=== PATIENT | female | born 1955 | race African-American/Black ===

== ENCOUNTER 2019-07-22 08:55 | Inpatient (IN) | payer OTHER ==
[~2019-07-22] VITALS: Ht 157.5 cm; Wt 69.6 kg
--- NOTE | ~2019-07-22 | EEG ---
[facility] [place] [address] ELECTROENCEPHALOGRAM Name: ZEKE COTE Room #: [facility] IN M.R.#: [id number] Admission: 07/22/19 Attend Phys: Matias Boogie MD Discharge: Date of : 59 Report #: [id number] THIS REPORT FOR: //name// CC: Matias Boogie [facility] unknown DATE OF SERVICE: 07/22/2019 This patient is being evaluated for altered mental status. There is a question that the patient may have had a seizure. EEG was done by placing the electrode by standard 10-20 system of electrode placement. Both referential and sequential montages were used for recording. Background activity in this patient's EEG is about 8 Hz and 15 microvolt. It is intermixed with theta range slowing throughout the record. The patient became drowsy and that demonstrated even more slowing on both sides. Throughout the record, no active epileptiform activity was noticed. IMPRESSION: This patient's EEG does not demonstrate any active epileptiform activity. However, the EEG is abnormal because it is intermixed with theta range slowing on both sides. That is a nonspecific abnormality, which can occur with dementia, effect of psychotropic medications, encephalopathy, etc. Clinical correlation is recommended. By: [id number] Jacoby Vega MD /nt
[2019-07-22 08:58] VITALS: BP 133/72
[2019-07-22 09:22] LABS: ABSOLUTE NEUTROPHILS 5.2 thou/uL (1.4-8.2); BASOPHILS 0.4 % (0.0-2.0); EOSINOPHILS 0.3 % (0.0-3.0); HEMATOCRIT 35.2 % (37.0-47.0); HEMOGLOBIN 11.8 gm/dL (12.0-15.0); LYMPHOCYTES 30.7 % (24.0-44.0); MCH 31.6 pg (26.0-34.0); MCHC 33.5 g/dL (28.0-37.0); MCV 94.1 fL (80.0-100.0); MONOCYTES 5.4 % (1.0-8.0); PLATELET COUNT 218 thou/uL (150-400); POLYS 63.2 % (36.0-66.0); RBC 3.74 mil/uL (4.20-5.00); RDW 14.6 % (10.5-14.5); WBC 8.3 thou/uL (4.0-11.0)
--- NOTE | 2019-07-22 09:34 | NUR ---
MRI QUESTIONARE FAXED TO MRI AT 0966
[2019-07-22 09:35] LABS: ANION GAP 12 mmol/L (7-16); BUN 15 mg/dL (7-18); CALCIUM 8.6 mg/dL (8.5-10.1); CHLORIDE 102 mmol/L (98-107); CO2 25 mmol/L (21-32); CREATININE 0.7 mg/dL (0.6-1.0); GLUCOSE 99 mg/dL (74-106); POTASSIUM 3.8 mmol/L (3.5-5.1); SODIUM 139 mmol/L (136-145)
[2019-07-22 09:36] LABS: APTT 27.1 Seconds (24.5-32.8); PROTIME 10.4 Seconds (9.3-11.4)
[2019-07-22 09:46] LABS: ALBUMIN 3.5 g/dL (3.4-5.0); MAGNESIUM 1.6 mg/dL (1.8-2.4); SGOT 10 U/L (15-37); SGPT 14 U/L (30-65); TOTAL BILIRUBIN 0.4 mg/dL (<0.1-1.0); TOTAL PROTEIN 6.8 g/dL (6.4-8.2); TROPONIN-I <0.06 ng/mL (<0.06)
[2019-07-22 10:10] LABS: URINE BILIRUBIN NEGATIVE (Negative); URINE BLOOD 2+ (Negative); URINE COLOR YELLOW; URINE GLUCOSE-RANDOM* NEGATIVE (Negative); URINE KETONES 1+ (Negative); URINE LEUKOCYTES-REFLEX TRACE (Negative); URINE NITRITE-REFLEX NEGATIVE (Negative); URINE PROTEIN (DIPSTICK) NEGATIVE (Negative); URINE SPECIFIC GRAVITY >= 1.030 (1.005-1.035)
[2019-07-22 10:11] LABS: URINE CLARITY HAZY
[2019-07-22 10:24] LABS: CASTS None Seen /LPF (None Seen); MUCUS 4-6 Moderate strn/LPF (None Seen); SQUAMOUS >10 Many /LPF (0-3)
[2019-07-22 10:25] LABS: BACTERIA-REFLEX >30 Many /HPF (None Seen); CRYSTALS None Seen /LPF (None Seen); URINE RBC 3-10 Few /HPF (0-2); URINE WBC-REFLEX 0-5 Rare /HPF (0-5)
[2019-07-22] MEDS ORDERED: ACETAMINOPHEN325 MG PO (10:26)
[2019-07-22] MEDS ORDERED: BUSPIRONE HCL10 MG PO (10:26)
[2019-07-22] MEDS ORDERED: CELEXA 20 MG TA20 MG PO ×2 (10:26→10:32)
[2019-07-22] MEDS ORDERED: LIPITOR 40 MG T40 M1 PO (10:26)
[2019-07-22] MEDS ORDERED: ST. JOSEPH ASPI81 MG PO (10:26)
[2019-07-22] MEDS ORDERED: GLUCOPHAGE500 MG PO (10:27)
[2019-07-22] MEDS ORDERED: LEVETIRACETAM500 M1 PO (10:27)
[2019-07-22] MEDS ORDERED: DEPAKOTE500 MG PO (10:27)
[2019-07-22] MEDS ORDERED: JANUVIA100 MG PO (10:27)
[2019-07-22] MEDS ORDERED: MIRALAX119 GM PO (10:28)
[2019-07-22] MEDS ORDERED: MUSCLE RUB CRE113 G1 TOP (10:28)
[2019-07-22] MEDS ORDERED: SUPER THERAVIT1 EACH PO (10:28)
[2019-07-22 10:30] LABS: AMP/METHAMP Negative (Negative); BARBITURATES Negative (Negative); BENZODIAZEPINES Negative (Negative); COCAINE Negative (Negative); METHADONE Negative (Negative); OPIATES Negative (Negative); PCP Negative (Negative)
[2019-07-22] MEDS ORDERED: NOVOLOG100 UNIT/M SUBQ ×2 (10:30→10:31)
[2019-07-22] MEDS ORDERED: REMERON15 M2 PO (10:31)
[2019-07-22 12:26] VITALS: BP 135/72
[2019-07-22 12:32] VITALS: BP 124/75
--- NOTE | 2019-07-22 12:57 | EKG ---
[facility] [place] [address] ELECTROCARDIOGRAM REPORT Name: ZEKE COTE Room #: 170-12 ADM IN M.R.#: [id number] Admission: 07/22/19 Attend Phys: Matias Boogie MD Discharge: Date of : 59 Report #: [id number] THIS REPORT FOR: cc: LUCILLE - Family physician unknown FAM - Family physician unknown Vince Mei MD ~ THIS REPORT FOR: //name// [facility] ED Test Date: 2019-07-22 Test Time: 09:29:13 Pat Name: ZEKE COTE Department: Room: 170 Gender: F Ob Gyn: kasia : 1955 Requested By: Jalen Aguirre Order Number: [id number] MD: Vince Mei Measurements Intervals [place] Rate: 75 P: 8 RI: 186 QRS: 11 QRSD: 91 T: 152 QT: 399 QTc: 446 Interpretive Statements Sinus rhythm Low voltage, precordial leads Abnormal T, consider ischemia, lateral leads Baseline wander in lead(s) III No previous ECG available for comparison Electronically Signed On 07-22-2019 12:55:20 CDT by Vince Mei [email or web address] <ELECTRONICALLY SIGNED> By: Vince Mie MD 07/22/19 1255 0929 0929 Vince Mei MD /EPI
[2019-07-22 12:58] VITALS: BP 147/71
[2019-07-22 16:10] VITALS: BP 156/78
--- NOTE | 2019-07-22 17:05 | NUR ---
TO UNIT BY SLY SÁNCHEZ E.D. AT 1300, REPORT FROM LUCIUS NEVILLE. DR. POWER CONSULTED FOR NEURO. MULTIPLE TESTS. SR PER TELE. WHEN FIRST HERE SHE HELD HER LEFT ARM IN A CONTRACTED POSE AND WAS VERY APHASIC. THE DAY HAS PROGRESSED, HER LEFT ARM HAS RELAXED AND HER ABILITY TO SPEAK AND MAKE HER NEEDS KNOWN HAS DRAMATICALLY IMPROVED. ST EVALS AND RECOMMENDS PUREED DIET WITH NECTAR THICK LIQUIDS. EXTERNAL FEMALE CATHETER PLACED FOR IMMOBILITY. WILL CONTINUE TO FOLLOW CLOSELY.
[2019-07-22 20:56] VITALS: BP 95/65
[2019-07-23 02:07] LABS: GLYCOHEMOGLOBIN (HGB A1C) 6.2 % (4.8-5.6)
--- NOTE | 2019-07-23 04:29 | NUR ---
PATIENTS CARES WERE ASSUMED AT SHIFT CHANGE. PATIENT WAS ROTATED FROM LEFT TO RIGHT. PATIENT WAS ASSESSED AND MED S WERE PASSED. PATIENT IS INCONTET. ONE BATH AND A LINEN CHNG. HOURLY ROUNDS WERE MADE THE BED IS IN A LOW AND LOCKED POSITION
[2019-07-23 04:45] VITALS: BP 132/58
[2019-07-23 07:59] VITALS: BP 160/81
[2019-07-23 11:33] LABS: ABSOLUTE NEUTROPHILS 4.2 thou/uL (1.4-8.2); BASOPHILS 0.4 % (0.0-2.0); EOSINOPHILS 0.3 % (0.0-3.0); HEMATOCRIT 33.9 % (37.0-47.0); HEMOGLOBIN 11.3 gm/dL (12.0-15.0); LYMPHOCYTES 34.3 % (24.0-44.0); MCH 31.4 pg (26.0-34.0); MCHC 33.3 g/dL (28.0-37.0); MCV 94.5 fL (80.0-100.0); MONOCYTES 5.4 % (1.0-8.0); PLATELET COUNT 208 thou/uL (150-400); POLYS 59.6 % (36.0-66.0); RBC 3.59 mil/uL (4.20-5.00); RDW 14.5 % (10.5-14.5); WBC 7.1 thou/uL (4.0-11.0)
[2019-07-23 11:40] LABS: ANION GAP 10 mmol/L (7-16); BUN 9 mg/dL (7-18); CALCIUM 8.2 mg/dL (8.5-10.1); CHLORIDE 105 mmol/L (98-107); CO2 26 mmol/L (21-32); CREATININE 0.7 mg/dL (0.6-1.0); GLUCOSE 193 mg/dL (74-106); MAGNESIUM 1.6 mg/dL (1.8-2.4); POTASSIUM 3.8 mmol/L (3.5-5.1); SODIUM 141 mmol/L (136-145)
[2019-07-23 11:49] VITALS: BP 117/58
[2019-07-23 11:54] LABS: CHOLESTEROL 129 mg/dL (<200); HDL CHOLESTEROL 38 mg/dL (>40); LDL CHOLESTEROL 75 mg/dL (<100); TC:HDL 3.4 Ratio (Not establshd); TRIGLYCERIDE 80 mg/dL (<150); VLDL 16 mg/dL (<40)
--- NOTE | 2019-07-23 14:58 | NUR ---
PT IS FROM [facility] FAXED CLINICAL UPDATE SPOKE WITH ELIAS IN ADM SHE RECEIVED UPDATE. DP TO FOLLOW.
--- NOTE | 2019-07-23 15:40 | NUR ---
ASSUMED CARE AT SHIFT ASSESSMENT DOCUMENTED, BP WAS ELEVATED THIS MORNING AND BACK TO WNL AFTER MORNING SCHEDULED MEDS GIVEN. DENIES ANY DISCOMFORT,Q2 POSITIONED FOR COMFORT. AND WILL CONTINUE WITH POC.
[2019-07-23 15:58] VITALS: BP 151/75
--- NOTE | 2019-07-23 17:40 | NUR ---
Case opened to follow for dc planning. Chart reviewed and discussed with the care team as well as the admissions dir at [facility]. The pt is aphasic d/t CVA 2 years ago. Nuclear Medicine Supervisor spoke with her dtr Yessica who is her primary next of kin contact. Dion reports that the pt has been living at [facility] for approx 2 years after her stroke. She talks with her daily and reports she is talkative and can normally respond to basic questions. She is non ambulatory and is normally up to a w/c, sometimes requiring a lift. Yessica reports she is able to transfer her from her w/c back to bed when she is there visiting. The pt does not have a living will, AD or dpoa for hc in place. Yessica reports that she is usually the point person for the family and updates her siblings as needed. Dc [facility] at [facility] [place] are holding her bed. Dc exercise planner has faxed a clinical update today. Neuro consult noted. Seizure vs CVA. No surgery anticipated per CTS. Nursing notified of dtrs request for an update this evening. will follow.
[2019-07-23 20:15] VITALS: BP 129/64; BP 99/54
[2019-07-24 00:45] VITALS: BP 127/64
[2019-07-24 04:45] VITALS: BP 137/56
--- NOTE | 2019-07-24 07:35 | NUR ---
pt pleasantly confused, follows directions, no c/o pain, turn q 2 hours , ex female catheter with yellow urine, no bm this evening, vss, nectar thick liquids with pureed diet, will con't to monitor per ppoc.
[2019-07-24 08:35] VITALS: BP 145/82
--- NOTE | 2019-07-24 16:07 | NUR ---
DC timeframe uncertain. [facility] has ordered additional testing to determine is surgery could benefit the pt. [facility] updated. They can not accept the pt back without Covid testing. The attending was notified and her test is pending. [facility] also indicated they are not able to accept weekend admissions due to staffing. Dc back to the [facility] anticipated early next week pending any surgical intervention. Dc c4 planner faxed a clinical updated to [facility] as well.
--- NOTE | 2019-07-24 16:37 | NUR ---
Assumed pt care at 7am.Pt in bed alert and oriented x2.Repositioned q2h for comfort.Assessment completed.vss.Rn fed at breakfast.Pt took 80% and tolerated meds.Dr Boogie here.New order noted.Pt left for ct neck and arteriogram later this morning and returned to floor after one hour.Pt dtr called and updates given.Piv replaced by iv team this afternoon.Good urinary output noted perexternal cath.Fall bundle in place for safety.Will continue to monitor.
[2019-07-24 16:49] VITALS: BP 171/80
--- NOTE | 2019-07-24 19:12 | HC ---
[facility] [place] [address] CONSULTATION Name: ZEKE COTE Room #: 217-P ADM IN M.R.#: [id number] Admission: 07/22/19 Attend Phys: Matias Boogie MD Discharge: Date of : 59 Report #: [id number] THIS REPORT FOR: cc: LUCILLE - Family physician unknown FAM - Family physician unknown Santiago Marti MD ~ CC: Matias ADKINS unknown DATE OF SERVICE: 07/23/2019 We were asked to see the patient in evaluation of carotid artery disease. HISTORY OF PRESENT ILLNESS: The patient is a 64-year-old admitted on 07/22/2019 with altered mental status. Apparently, the patient was admitted with this diagnosis, but when she was seen in the Emergency Department, she was close to baseline. CT scan at that time showed no acute findings. 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 Neurology consult was obtained. MRI and MRA were done that shows the old infarct, but no acute changes. MRA suggests that there is a high-grade right internal carotid artery stenosis, but a carotid duplex today shows moderate stenosis and ICA/CCA ratio of 220 on the right and 125 on the left. I met the patient and got little more than one word answers out of her and much of this history is gleaned from the chart. PAST MEDICAL HISTORY: Significant for diabetes mellitus and hypertension. MEDICATIONS: At the [facility] include acetaminophen, aspirin, atorvastatin, buspirone, Celexa, Depakote, Januvia, levetiracetam, metformin, insulin, Remeron. ALLERGIES: None known. PAST SURGICAL HISTORY: Denies previous vascular or heart surgery. SOCIAL HISTORY: The patient states she has never been a tobacco smoker. The patient states that she lives in a fpc, sounds like [facility]hakar. REVIEW OF SYSTEMS: As mentioned, this can be gleaned only from the chart. PHYSICAL EXAMINATION: GENERAL: The patient is lying in bed. Eyes are open and the patient appears awake. VITAL SIGNS: Temperature 37.4, heart rate 71, respiratory rate 16, blood pressure 117/58, O2 sat 94 on room air. [facility] [address] [place] [address] CONSULTATION Name: ZEKE COTE Room #: 217-[facility] IN M.R.#: [id number] Admission: 07/22/19 Attend Phys: Matias Boogie MD Discharge: Date of : 59 Report #: [id number] HEENT: No scleral icterus, no arcus. Pupils are round, equal. Extraocular movements full. NECK: No mass. CHEST: Clear. HEART: Rhythm regular, no murmur. ABDOMEN: Soft. EXTREMITIES: No clubbing, cyanosis or edema. Left arm is flexed against the body. Distal pulses are normal. NEUROLOGIC: Hard to tell how oriented the patient is. I cannot understand completely her responses. She does state that she has diabetes and hypertension and tells me where she normally lives, states that she was admitted here with hypertension and denies any discomfort. Affect is quite flat, but the patient is not obstreperous. SKIN: No rash, no infection. ASSESSMENT: The patient has evidence of an old right hemispheric infarct with limited communication and some affect changes chronically. It is not clear whether or not there are any acute neurologic symptoms. There are 2 imaging studies that do not quite correlate and in any event, I would prefer to see a CT angiogram or a formal angiogram to decide whether or not there is a lesion that should be addressed. Obviously with the history of a right middle cerebral infarct, the benefit of carotid surgery will be attenuated. The benefit generally is prevention of stroke and this has already occurred. The patient states there is no family to be involved with this decision and it is not clear if that is the case. I would like to discuss with the hospitalists and/or Neurology before proceeding. Thank you for the consult. <ELECTRONICALLY SIGNED> By: Santiago Marti MD 07/24/19 1912 1504 1550 Santiago Marti MD /nt
[2019-07-24 19:49] VITALS: BP 159/69
[2019-07-25 04:19] VITALS: BP 148/80
--- NOTE | 2019-07-25 06:21 | NUR ---
ASSESSMENT DOCUMENTED.PT A/OX2.OBEYS AND FOLLOWS COMMANDS APPROPRIATELY.VSS.STAFF ASSIST W/ADLS.DENIES PAIN.NO CONCERNS VOICED BY THE PATIENT.WILL CONT TO MONITOR PER POC.
[2019-07-25 08:00] VITALS: BP 148/94
[2019-07-25 12:00] VITALS: BP 142/75
[2019-07-25] MEDS ORDERED: KEPPRA1000 MG PO (12:22)
[2019-07-25] MEDS ORDERED: MAGOX 400400 MG PO (12:22)
[2019-07-25] MEDS ORDERED: PLAVIX 75 MG TA75 MG PO (12:22)
[2019-07-25 17:30] VITALS: BP 137/97
--- NOTE | 2019-07-25 19:41 | NUR ---
PT ALERT AND ORIENTED TO SELF WITH CONFUSION. VSS. TURNED AND REPOSITIONED Q 2 HOURS AND NEEDED. DISCHARGE BACK TO SNF ON HLOD UNTIL SATURDAY PER THE FACILITY THEY DO NOT TAKE ADMISSION ON THE WEEKENDS. DR YOUNGER NOTIFIED. NO CONCERNS AT THIS TIME. WILL CONTINUE TO MONITOR.
[2019-07-25 19:47] VITALS: BP 142/69
--- NOTE | 2019-07-26 04:43 | NUR ---
ASSESSMENT DOCUMENTED.PT BEEN RESTING IN NO ACUTE DISTRESS.A/OX1-2,FORGETFUL AND CONFUSED.PT RESTED WELL THROUGH THE NOC.DENIES PAIN.NSR ON MONITOR.POC IS TO DISCHARGE TO NURSING FACILITY TOMORROW.WILL CONT WITH POC.
[2019-07-26 05:31] VITALS: BP 147/77
[2019-07-26 08:00] VITALS: BP 138/74
[2019-07-26 12:00] VITALS: BP 145/93
[2019-07-26 17:00] VITALS: BP 162/96
--- NOTE | 2019-07-26 18:38 | NUR ---
ASSESSMENT CHARTED. PT ALERT AND ORIENTED TO SELF WITH FORGETFULNESS AND CONFUSION. APPETITE GOOD. PLAN TO BE DISCHARGE IN AM TO SNF. PROGRESSING WELL TOWARDS DISCHARGE GOAL. WILL CONTINUE TO MONITOR.
[2019-07-26 19:26] VITALS: BP 151/79
--- NOTE | 2019-07-27 01:36 | NUR ---
ASSESSMENT DOCUMENTED.PT BEEN RESTING IN NO ACUTE DISTRESS.A/O.VSS.PT DENIES ANY NEEDS AT THIS TIME.PT PROGRESSING WELL TOWARDS DISCHARGE GOAL.PT ABLE TO HOLD A CUP WITH THE RIGHT HAND AND DRINK,MOVES LEFT LEG WO DIFFICULTIES.POC IS TO DISCHARGE TODAY TO NURSING FACILITY.
[2019-07-27 03:42] VITALS: BP 149/75
[2019-07-27 08:00] VITALS: BP 144/63
--- NOTE | 2019-07-27 10:01 | NUR ---
FAXED CLIICAL UPDATE ON 07/23 RECEIVED CONFIRMATION AND LEFT MSG WITH ELIAS IN ADM. DP TO FOLLOW.
--- NOTE | 2019-07-27 14:37 | NUR ---
FAXED CLINICAL UPDATE TO [facility] SPOKE WITH ELIAS IN ADM SHE RECEIVED UPDATE. FACILITY IS WTG FOR COVID 19 RESULT IT IS PENDING TO ACCEPT PT BACK TO FACILITY. DP TO FOLLOW.
--- NOTE | 2019-07-27 16:40 | NUR ---
ASSUMED CARE 0700. PT ALERT X 2, REQUIRES REORRIENTATIONS, WILL VOICE HER NEEDS. PT DENIES PAIN, PT DENIES SOB, ASSISTANCE WITH MEALS, PUREED, NECTOR THICK LIQUIDS, PT LEANS TO LEFT PER THERAPY, NO AMBULATING,SAT ON SIDE OF BED WITH PT. REQUIRES ASSISTANCE WITH REPOSITIONING. ON FALL PRECAUITONS. NRS ON TELE, STATUS CHANGED TO MED SURG. PT MOVED TO 4TH FLOOR. REPORTED OFF TO RUPALI KAN. FALL
--- NOTE | 2019-07-27 16:54 | NUR ---
COVID test still pending. Must rec prior to dc to [place]. [facility] following
[2019-07-27 19:24] VITALS: BP 140/80
--- NOTE | 2019-07-27 19:38 | NUR ---
1900 assumed care of pt and baseline assessment completed, pt is awake alert and oriented to person place and situation, PERRLA answering questions appropriately. pt asking to call daughter Yessica, so phone dialed and pt had conversation. pt with left sideed weakness to LUE, able to lift BLE LCTAB, sking warm and dry with peripheral pulses palpable to all exteremities 2+. fall and seizure precautions in place. will continue to reposition per protocol q2 hours. Aspiration precautions in place, nectar thick liquids 1929 called negative covid test results to Farzana Robles NP.
--- NOTE | 2019-07-27 19:46 | NUR ---
PT CARE ASSUMED AT 1600 A TRANSFER FROM . PT COVID TEST NEGATIVE. SHILPI NOTIFIED BY NICO KAN. A&Ox3. PT WILL CALL OUT OD THE ROOM "HELP" INSTEAD OF PUSHING THE CALL LIGHT. FALL PROTOCOL IN PLACE. CALL LIGHT IN REACH. EXTERNAL SCHWAB CATH IN PLACE. Q2 TURNS. PT COMPLAINED OF A SLIGHT HEADACHE. VITALS STABLE. IV PATENT WITH NO REDNESS OR EDEMA. ASPIRATION PROTOCOL IN PLACE. CALL LIGHT IN PLACE. WILL CONTINUE TO MONITOR. REPORT GIVEN TO NICO KAN. ACHS.
[2019-07-28 04:20] VITALS: BP 139/74
[2019-07-28 07:08] VITALS: BP 144/67
--- NOTE | 2019-07-28 13:14 | NUR ---
PT DISCHARGING TODAY TO [facility] FAXED DC ORDERS/SUMMARY TO FACILITY SPOKE WITH ELIAS IN ADM THEY DO NOT HAVE TRANSPORT FOR STRETCHER VAN ARRANGED TRANSPORT WITH [facility] FOR [id number]. NOTIFIED PT'S DTR AMELIE OF DC AND TIME OF TRANSPORT. UNIT NOTIFIED AND CHART COPY PER US, RN TO CALL REPORT TO [phone].
--- NOTE | 2019-07-28 13:22 | NUR ---
ON-GOING ASSESSMENT: PT HAS ORDERS TO DISCHARGE TO FACILITY TODAY (SHILPI). DISCHARG TRANSPORTATION REFRIGERATION TECHNICIAN IS WORKING ON FACILITATING DISCHARGE. CM SPOKE WITH PATIENTS DAUGHTER WHO IS AWARE OF DISCHARGE TODAY AND AGREEABLE. PER STROKE PROGRAM COORDINATOR PT WILL HAVE TRANSPORTATION BETWEEN 1-4 PM THROUGH [facility].
--- NOTE | 2019-07-28 16:24 | NUR ---
ASSUMED PATIENT CARE AT 0700. ADMITTED FOR ALTERED MENTAL STATUS. ALERT X ORIENTED X PERSON, PLACE. LEFT SIDED WEAKNESS WITH APHASIA OF LF SIDE. PATIENT IS ON NECTAR THICK LIQUIDS. FOOD TOLERATING WELL. INCONTINENCE OF BOWEL AND BLADDER, HAD LAST BOWEL MOVEMENT TODAY. TURN q2HRS. PATIENT TALKED TO HER DAUGHTER IN PHONE AND LOOKED HAPPY AFTER THAT. ON ROOM AIR, NO KNOWN ALLERGIES, ACHS, NO PAIN NOTIFIED. PAATIENT TRANSFERRED TO THE FACILITY AND FAMILY NOTIFIED AND COMMUNICATED.
== END 2019-07-28 16:00 | DRG 72 ==
LOC: ER 08:55 → EROBS 11:30 → 2N 13:10 → 4S 07-27 14:12
PROVIDERS: Emergency Medicine; Nurse Practitioner; ADMIT Hospitalist
DX: G93.40 Encephalopathy, unspecified (principal); G40.409 Other generalized epilepsy and epileptic syndromes, not intractable, without status epilepticus; E78.5 Hyperlipidemia, unspecified; F41.1 Generalized anxiety disorder; I65.21 Occlusion and stenosis of right carotid artery; G93.89 Other specified disorders of brain; Z20.828 Contact with and (suspected) exposure to other viral communicable diseases; I10 Essential (primary) hypertension; E83.42 Hypomagnesemia; E11.51 Type 2 diabetes mellitus with diabetic peripheral angiopathy without gangrene; F31.9 Bipolar disorder, unspecified; K59.00 Constipation, unspecified; Z86.73 Personal history of transient ischemic attack (TIA), and cerebral infarction without residual deficits; Z79.84 Long term (current) use of oral hypoglycemic drugs
CPT/HCPCS: 10081; 10100; 10194; 10195

== ENCOUNTER 2019-09-25 11:11 | Inpatient (IN) | payer OTHER ==
[~2019-09-25] VITALS: Ht 157.5 cm; Wt 65.8 kg
[~2019-09-25 11:11] MED LIST: ACETAMINOPHEN325 MG PO; BUSPIRONE HCL10 MG PO; CELEXA 20 MG TA20 MG PO; DEPAKOTE500 MG PO; GLUCOPHAGE500 MG PO; JANUVIA100 MG PO; KEPPRA1000 MG PO; LEVETIRACETAM500 M1 PO; LIPITOR 40 MG T40 M1 PO; MAGOX 400400 MG PO; MIRALAX119 GM PO; MUSCLE RUB CRE113 G1 TOP; NOVOLOG100 UNIT/M SUBQ; PLAVIX 75 MG TA75 MG PO; REMERON15 M2 PO; ST. JOSEPH ASPI81 MG PO; SUPER THERAVIT1 EACH PO
[2019-09-25 11:12] VITALS: BP 119/80
[2019-09-25 12:28] LABS: URINE BLOOD NEGATIVE (Negative); URINE CLARITY CLEAR; URINE COLOR YELLOW; URINE GLUCOSE-RANDOM* NEGATIVE (Negative); URINE KETONES TRACE (Negative); URINE LEUKOCYTES-REFLEX NEGATIVE (Negative); URINE NITRITE-REFLEX NEGATIVE (Negative); URINE PROTEIN (DIPSTICK) 2+ (Negative); URINE SPECIFIC GRAVITY >= 1.030 (1.005-1.035)
[2019-09-25 12:30] LABS: ICTOTEST (BILI CONFIRMATORY) Negative (Negative); URINE BILIRUBIN NEGATIVE (Negative)
[2019-09-25 12:45] LABS: BACTERIA-REFLEX 1-9 Few /HPF (None Seen); CASTS None Seen /LPF (None Seen); CRYSTALS None Seen /LPF (None Seen); SQUAMOUS None Seen /LPF (0-3); URINE WBC-REFLEX 0-5 Rare /HPF (0-5)
[2019-09-25 12:46] LABS: URINE RBC None Seen /HPF (0-2)
[2019-09-25 13:00] LABS: ABSOLUTE NEUTROPHILS 8.4 thou/uL (1.4-8.2); BASOPHILS 0.2 % (0.0-2.0); HEMATOCRIT 35.7 % (37.0-47.0); HEMOGLOBIN 11.4 gm/dL (12.0-15.0); MCH 30.5 pg (26.0-34.0); MCHC 31.8 g/dL (28.0-37.0); MCV 95.7 fL (80.0-100.0); MONOCYTES 6.8 % (1.0-8.0); PLATELET COUNT 219 thou/uL (150-400); RBC 3.73 mil/uL (4.20-5.00); RDW 14.7 % (10.5-14.5); WBC 11.7 thou/uL (4.0-11.0)
[2019-09-25 13:09] LABS: ANION GAP 11 mmol/L (7-16); BUN 24 mg/dL (7-18); CALCIUM 9.5 mg/dL (8.5-10.1); CHLORIDE 102 mmol/L (98-107); CO2 27 mmol/L (21-32); CREATININE 0.9 mg/dL (0.6-1.0); GLUCOSE 135 mg/dL (74-106); SODIUM 140 mmol/L (136-145)
[2019-09-25 13:19] LABS: ALBUMIN 2.6 g/dL (3.4-5.0); SGOT 20 U/L (15-37); SGPT 14 U/L (30-65); TOTAL BILIRUBIN 0.3 mg/dL (0.2-1.0); TOTAL PROTEIN 7.6 g/dL (6.4-8.2); TROPONIN-I <0.06 ng/mL (<0.06)
--- NOTE | 2019-09-25 15:08 | NUR ---
Q4H V/S PER ADMIT ORDER
[2019-09-25 15:45] VITALS: BP 114/77
[2019-09-25 16:05] VITALS: BP 140/81
--- NOTE | 2019-09-25 16:31 | EKG ---
[facility] [place] [address] ELECTROCARDIOGRAM REPORT Name: ZEKE COTE Room #: 170-12 ADM IN M.R.#: [id number] Admission: 09/25/19 Attend Phys: Isaiah Harp MD Discharge: Date of : 59 Report #: [id number] THIS REPORT FOR: cc: LUCILLE - No family physician/PCP LUCILLE - No family physician/PCP Bipin Wong MD [facility] THIS REPORT FOR: //name// [facility] ED Test Date: 2019-09-25 Test Time: 12:14:23 Pat Name: ZEKE COTE Department: Room: Gender: F Automotive Assembler: [facility] : 1955 Requested By: Akiko Sorto Order Number: [id number] MD: Bipin Wong Measurements Intervals [place] Rate: 116 P: 14 SD: 167 QRS: 14 QRSD: 77 T: QT: 323 QTc: 449 Interpretive Statements Sinus tachycardia Poor R wave progression Nonspecific T wave abnormality Compared to ECG 07/22/2019 09:29:13 T wave abnormalities less pronounced Electronically Signed On 09-25-2019 16:31:07 CDT by Bipin Wong [email or web address] <ELECTRONICALLY SIGNED> By: Bipin Wong MD, [facility] 09/25/19 1631 1214 1214 Bipin Wong MD, [facility] /EPI
--- NOTE | 2019-09-25 19:53 | NUR ---
PATIENT ADMITTED TO ROOM AT THIS TIME. SHE IS ALERT ORIENTED TO SELF. INCONT ON BOWEL AND BLADDER. INITIAL ASSESSMENT COMPLETED. WILL CONT WITH PLAN OF CARE.
[2019-09-25 20:15] VITALS: BP 136/90
--- NOTE | 2019-09-26 06:45 | NUR ---
placed a purewick for incont. she has been drinking well tonight. careplan reviewed. denies pain.
[2019-09-26 07:44] VITALS: BP 126/79
--- NOTE | 2019-09-26 10:48 | HC ---
[facility] [place] [address] CONSULTATION Name: ZEKE COTE Room #: 361- ADM IN M.R.#: [id number] Admission: 09/25/19 Attend Phys: Isaiah Harp MD Discharge: Date of : 59 Report #: [id number] THIS REPORT FOR: cc: LUCILLE - Sarah family physician/PCP LUCILLE - Sarah family physician/PCP Archie English MD ~ CC: [facility] physician/PCP Isaiah Harp DATE OF SERVICE: 09/26/2019 INFECTIOUS DISEASE CONSULTATION ATTENDING PHYSICIAN: Dr. Harp. REASON FOR EVALUATION: COVID-19 infection, complicated by fevers. The patient has significant comorbidities including previous stroke. HISTORY OF PRESENT ILLNESS: She is a 64-year-old resides in a chcf, who was admitted in transfer and was confirmed to be COVID positive. There was felt to have progressive dyspnea. It is difficult to ascertain her baseline mental status. She is unresponsive at this point. Chest x-ray was fairly unremarkable. Urinalysis was unremarkable as well. D-dimer slightly elevated as was the lactic acid up to 4.0. CTA chest PE protocol showed mild bibasilar infiltrates. She was found to be febrile up to 102.4. Hemodynamics are relatively stable at this point. ALLERGIES: None known. MEDICATIONS: Include aspirin, clopidogrel, divalproex, insulin, citalopram, levetiracetam and p.r.n. analgesics. PAST MEDICAL HISTORY: Diabetes mellitus type 2 complicated by vasculopathy, has left sided hemiparesis, right-sided hemiplegia, bipolar disorder, hypertension, hyperlipidemia and remote history of seizures. SOCIAL HISTORY: Nonsmoker, no ethanol, no illicit drug use. FAMILY HISTORY: Not obtainable. REVIEW OF SYSTEMS: Not obtainable. PHYSICAL EXAMINATION: GENERAL: She is lying supine, really is minimally responsive at this point. She is not overtly distressed. She is on room air oxygen. Appears undernourished. [facility] [address] [place] [address] CONSULTATION Name: ZEKE COTE Room #: 361-[facility] IN [facility]#: [id number] Admission: 09/25/19 Attend Phys: Isaiah Harp MD Discharge: Date of : 59 Report #: [id number] VITAL SIGNS: T-max 102.3 last evening, more recently 97.4. Pulse 84, respirations 24, blood pressure 126/79. SKIN: Warm and rashes. HEENT: Normocephalic. NECK: Appears to be supple. LUNGS: Diminished breath sounds. HEART: Regular. Borderline tachycardic. I do not appreciate a murmur. ABDOMEN: Without evidence of any peritoneal signs. GENITOURINARY AND RECTAL: Deferred. LABORATORY DATA: Chest x-ray and CT noted above. Most recent lactic acid 1.7. Coronavirus PCR was positive. Electrolytes: Sodium 140, potassium 4.0, chloride 102, bicarbonate 27, anion gap of 11, BUN and creatinine 24 and 0.9, D-dimer 0.97. CBC: White count of 11.7, H and H 11.4 and 35.7. Urinalysis 0-5. ASSESSMENT AND PLAN: COVID-19 positive patient that really cannot describes, essentially nonresponsive at this point. She has had some fevers. I am not sure I can isolate a definitive site of infection, although certainly cannot exclude a secondary bacterial focus of infection. Blood cultures are pending. We will dose with empiric therapy at this point. She is so tenuous. We would be concerned about her deteriorating quickly. We will continue supportive care. Overall, prognosis appears guarded. <ELECTRONICALLY SIGNED> By: Archie English MD 09/26/19 1048 1009 1028 Archie English MD /nt
[2019-09-26 11:46] VITALS: BP 129/80
[2019-09-26 15:41] VITALS: BP 131/81
--- NOTE | 2019-09-26 19:36 | NUR ---
PATIENT EASILY AWAKENS BUT IS ASLEEP MOST OF TIME. SHE IS NOT ABLE VIOCE CONCERNS. INCONT OF BOWEL AND BLADDER. KEPT CLEAN AN DRY. WILL CONT WITH PLAN OF CARE.
[2019-09-26 20:22] VITALS: BP 129/84
[2019-09-27 04:15] VITALS: BP 140/88
--- NOTE | 2019-09-27 06:37 | NUR ---
continues to be weak and tired. she prefers to sleep the entire shift. she will take PO fluids if offered. denies pain. essence reviewed.
[2019-09-27 08:19] VITALS: BP 125/71
[2019-09-27 15:49] VITALS: BP 148/90
--- NOTE | 2019-09-27 16:24 | NUR ---
RESTING IN BED. LOW GRADE FEVER EARLIER. RESPIRATIONS ARE NON LABORED. PLEASANT WITH CARE. INCONT OF BOWEL AND BLADDER. WILL CONT WITH PLAN OF CARE.
[2019-09-27 19:43] VITALS: BP 153/86
[2019-09-28 02:27] VITALS: BP 169/90
--- NOTE | 2019-09-28 03:51 | NUR ---
Patient making slow progress towards outcome goals. Afebrile. Total care. Coughing and clearing of throat noted after feeding per day RN. Some clearing of throat after giving meds with applesauce and honey thick liquids. High fall risks, fall precautions in place.
--- NOTE | 2019-09-28 08:18 | NUR ---
WOUND CARE CONSULT; PER RIGGING AND CONTROLS AIRCRAFT MECHANIC JIMMY NO WOUNDS, ORDER PUT IN MY MISTAKE, TO RECONSULT IF NEEDED, NO NEED FOR LOW AIR LOSS HANNAH, WILL DC CONSULT
[2019-09-28 09:30] VITALS: BP 157/98
--- NOTE | 2019-09-28 11:27 | NUR ---
ASSUMED CARE APPROX 0700. PT ALERT AND ORIENTED X1. ASSESSMENTS CHARTED AND VSS. AFEBRILE THIS AM. ON ROOM AIR WITH NO SIGNS OF RESPIRATORY DISTRESS NOTED. SR ON TELE MONITOR. PT DENIES ACUTE PAIN. PT DENIES CHEST PAIN. WILL CONTINUE TO MONITOR.
--- NOTE | 2019-09-28 11:37 | NUR ---
Chart reviewed and case discussed with the care team. Coffee Supervisor spoke with the admissions liason at [facility] as the pt is a ltc resident there. She has been there for over 2years and is disabled from a stroke. She is normally conversant and up in a w/c. She transfers with a lift. She is single and has three adult children. No dpoa or hc directive on file per the facility. They are holding her bed. Pt's dtr Yessica is the primary contact for the family and her two other siblings Dipika and Herberth. Coffee Supervisor spoke with the pt's dtr Yessica and she indicates that she has been getting updates from the unit staff. The pt is Covid + and in enhanced ISO with no visitors. The attending to call pt's dtr to discuss her plan of care and prognosis. The pt is a full code at this time. Will follow.
--- NOTE | 2019-09-28 13:56 | NUR ---
FAXED CLINICAL UPDATE TO [facility] SPOKE WITH ELIAS IN ADM SHE RECEIVED UPDATE. DP TO FOLLOW.
[2019-09-28 17:14] VITALS: BP 165/96
[2019-09-28 20:25] VITALS: BP 149/93
--- NOTE | 2019-09-29 03:27 | NUR ---
ASSUMED CARE OF PT AT 1900HRS. PT AOX1 AND NEEDS MUST BE ANTICIPATED. FALL PRECAUTION IN PLACE. ABX TREATMENT CONTINUED. PT DENIED PAIN, NAUSEA OR SOA. ASSESSMENT CHARTED. PT RUNNING SR ON TELE. ISOLATION CONTINUED FOR COVID + PT. PT HAS BEEN AFEBRILE. PT WAS ABLE TO GET COMFORTABLE AND SLEEP PART OF THE SHIFT. VSS AND NO S/S OF ACUTE DISTRESS. WILL CONTINUE TO MONITOR.
[2019-09-29 06:10] VITALS: BP 140/85
[2019-09-29 08:43] VITALS: BP 150/59
--- NOTE | 2019-09-29 17:14 | NUR ---
ASSUMED PATIENT CARE THIS MORNING AT APPROXIMATELY 0700. PATIENT AWAKE, ORIENTED X1. ASSESSMENT AND MEDS CHARTED. TOLERATED MEALS THIS SHIFT. NO S/S OF RESPIRATORY DISTRESS NOTED THIS SHIFT. O2 SAT REMAINES STABLE ON ROOM AIR.TURNS Q2H AND OFFLOADED ADI HEELS. PATIENT HAD LARGE BM THIS SHIFT. UPDATE GIVEN TO FAMILY THIS SHIFT ON PLAN OF CARE AND PATIENT STATUS.
[2019-09-29 17:16] VITALS: BP 166/90
--- NOTE | 2019-09-29 17:43 | NUR ---
SW reviewed chart and spoke with nursing and attending physician. Pt remains in Enhanced Isolation due to COVID-19. Pt is on IV abx and IV steroids. Plan is for pt to return to [facility] when medically stable. Pt will need an updated COVID test prior to discharge. BRAYDON is following to assist as needed with discharge planning.
[2019-09-29 20:26] VITALS: BP 131/88
[2019-09-30 04:36] VITALS: BP 155/77
--- NOTE | 2019-09-30 05:17 | NUR ---
ASSUMED CARE OF PT AT 1900HRS. PT IS AOX1 AND NEEDS MUST BE ANTICIPATED. FALL PRECAUTION IN PLACE. PT IS A TOTAL CARE. ABX TREATMENT CONTINUED. PT DENIED PAIN, NAUSEA OR SOA. PT RUNNING SR ON TELE. EXTERNAL FEMALE CATH IN PLACE. PT WAS ABLE TO GET COMFORTABLE AND SLEEP PART OF THE SHIF. VSS AND NO S/S OF ACUTE DISTRESS. WILL CONTINUE TO MONITOR.
[2019-09-30 07:47] VITALS: BP 160/84
[2019-09-30 10:48] LABS: HEMATOCRIT 31.2 % (37.0-47.0); HEMOGLOBIN 10.4 gm/dL (12.0-15.0); MCH 31.4 pg (26.0-34.0); MCHC 33.4 g/dL (28.0-37.0); RBC 3.31 mil/uL (4.20-5.00); WBC 12.7 thou/uL (4.0-11.0)
[2019-09-30 10:57] LABS: CALCIUM 8.4 mg/dL (8.5-10.1); CREATININE 0.6 mg/dL (0.6-1.0); POTASSIUM 3.5 mmol/L (3.5-5.1)
[2019-09-30 15:31] VITALS: BP 158/81
--- NOTE | 2019-09-30 16:05 | NUR ---
BRAYDON reviewed chart and spoke with nursing and attending physician. Pt remains in Enhanced Isolation due to COVID-19. Pt is on IV abx and IV steroids. Pt will need repeat COVID test within 48 hours of discharge. Test ordered today. BRAYDON provided update to [place] data coordinator, Hortensia. Faxed clinical info for review. BRAYDON spoke with pt's dtr, Yessica, via phone and to discuss discharge plan. Pt's dtr is agreeable with plan to return to [place] when medically stable. BRAYDON is following to assist as needed with discharge planning.
--- NOTE | 2019-09-30 16:43 | NUR ---
ASSUMED PATIENT CARE AT APPROXIMATELY 0700 THIS MORNING. ASSESSMENT AND MEDS CHARTED. NO S/S OF RESPIRATORY DISTRESS NOTED THIS SHIFT. O2 SAT STABLE ON ROOM AIR. NO FEVERS NOTED THIS SHIFT.ALCIRA FOLEYWAAnnelise ORDERED AND OBTAINED THIS SHIFT. PATIENT TURNED Q2H AND HEELS OFFLOADED THROUGHOUT SHIFT.
[2019-09-30 20:00] VITALS: BP 151/80
[2019-10-01 05:10] VITALS: BP 146/73
[2019-10-01 05:58] LABS: HEMATOCRIT 31.5 % (37.0-47.0); HEMOGLOBIN 10.6 gm/dL (12.0-15.0); MCH 31.5 pg (26.0-34.0); MCHC 33.6 g/dL (28.0-37.0); MCV 93.8 fL (80.0-100.0); PLATELET COUNT 426 thou/uL (150-400); RBC 3.36 mil/uL (4.20-5.00); WBC 13.2 thou/uL (4.0-11.0)
--- NOTE | 2019-10-01 06:39 | NUR ---
ASSUMED CARE FOR THIS PT AT 1900, UPON ARRIVAL PT WAS INCONTINENT TO BOWEL AND URINE, PT WAS CLEANED UP WITH THE HELP OF A SWITCH CREW SUPERVISOR. USING THE JONES CAPONE FACES SCALE PT'S PAIN LEVEL WAS INDICATED AT 1. WHEN RN TRIED TO USE THE IV SITE FOR ABX TX, PT GRIMACED AND PRESENTED SIGNS OF PAIN AND DISCOMFORT. SITE WAS OBSERVED AND IT WA INFILTRATED. NEW IV WAS PLACED AND PT WAS COOPERATIVE DURING THE PROCESS. NEW EXCORIATION TO THE SACRUM WAS FOUND, PHOTO WAS TAKEN AND CHARTED, SPONGE GUAZE PLACED, Z GUARD IN THE ROOM TO USE. PT WAS TURNED Q2H. LOW AIRLOSS PUMP WAS ORDERED BUT NOT AVAILABLE AT THIS TIME. WILL HAVE TO DEFER TO THE DAY SHIFT.
[2019-10-01 08:30] VITALS: BP 143/97
--- NOTE | 2019-10-01 11:37 | NUR ---
WOUND CONSULT; A WOUND WAS IDENTIFIED TODAY BY PROPERTY CONDITION ASSESSOR. THE WOUND IS A STAGE 2 ALTHOUGH IT HAS S/S SUGGESTING FRICTION. NO S/S OF INFECTION. MEASURES 1.5 X 1.5 X 0.1 RECOMMENDATIONS; -ZGUARD BID -Q2H TURING -LOW AIR LOSS PUMP OR BED DISCUSSED WITH RN
[2019-10-01 13:37] LABS: ABSOLUTE NEUTROPHILS 7.5 thou/uL (1.4-8.2); METAMYELOCYTES 2 %; MYELOCYTES 1 %
[2019-10-01 13:38] LABS: ANISOCYTOSIS SLIGHT; POIKILOCYTOSIS SLIGHT
--- NOTE | 2019-10-01 14:26 | NUR ---
BRAYDON reviewed chart and spoke with nursing and attending physician. Pt remains in Enhanced Isolation due to COVID-19. Repeat test ordered and is pending. Pt is afebrile and not requiring O2. BRAYDON faxed updates to [place] and spoke with Hortensia in admissions. Facility is able to accept pt back tomorrow, but would not be able to admit pt back over the weekend due to staffing. BRAYDON updated attending physician. BRAYDON is following to assist as needed with discharge planning.
[2019-10-01 15:43] VITALS: BP 144/92
--- NOTE | 2019-10-01 16:42 | NUR ---
PT'S COVID TEST WAS POSITIVE FROM 09/30/19, RN HAS NOTIFIED DRS, PT IS CONTINUING ISOLATION FOR POSITIVE COVID.
--- NOTE | 2019-10-01 16:43 | NUR ---
PT KNOWS HER NAME, PT CON FOLLOW SOME COMMANDS, PT NEEDS HELP MEALS AND ADL ( CHANGE POSITION), PT IS ON ROOM AIR, PT 'S VS ARE STABLE, PT DOES NOT HAVE SOB, PT IS CONTINUING ISOLATION FOR POSITIVE COVID.
[2019-10-01 20:15] VITALS: BP 153/89
[2019-10-02 03:47] VITALS: BP 159/83
--- NOTE | 2019-10-02 05:39 | NUR ---
PT A&O TO SELF ONLY. ABLE TO FOLLOW SOME BASIC COMMANDS AND ANSWER BASIC QUESTIONS. DENIES PAIN. TURN & REPO Q2H. LEFT SIDE WEAKNESS R/T PAST CVA. TOTAL PT CARE. ACHS. PT CONTINUES ON ENHANCED ISO FOR POSITIVE COVID 19. TAKES MEDS WHOLE WITH APPLESAUCE.
[2019-10-02 08:13] VITALS: BP 190/97
[2019-10-02 09:12] VITALS: BP 155/75
--- NOTE | 2019-10-02 11:10 | NUR ---
ASSUMED CARE AT 0700. PT IS ALERT TO SELF ONLY. NO COMPLAINTS OF PAIN. ANSWERS TO QUESTIONS WITH YES OR NO. VSSA/RA. TELE NSR. PT IS INCONTINENT, WITH EXERNAL PUREWICK CATH IN PLACE. TOLERATING DIET, DOESN'T FEED SELF. POOR PO. MONITORING BLOOD SUGARS. PIV WITHOUT ISSUES. PT IS BEDREST, Q2 TURNS. FALL PRECAUTIONS IN PLACE. CALL LIGHT IN PLACE. WILL CONINUE TO MONITOR.
[2019-10-02 15:27] VITALS: BP 129/82
--- NOTE | 2019-10-02 15:59 | NUR ---
BRAYDON reviewed chart and spoke with nursing and attending physician. Pt remains in Enhanced Isolation due to COVID-19. Pt's repeat test is positive. Pt is afebrile and not requiring O2. Pt is on IV abx. No weekend discharge planned. BRAYDON left voice message for Hortensia at [facility]. Pt will need repeat COVID test ordered within 48 hours of discharge. BRAYDON updated attending physician. BRAYDON is following to assist as needed with discharge planning.
[2019-10-02 19:24] VITALS: BP 154/84
--- NOTE | 2019-10-02 19:45 | NUR ---
PT RESTING IN BED. ALERT TO SELF GOOD EYE CONTACT WITH MINIMAL VERBAL INTERACTION. IVF INTACT. EXT FEMALE CATHETER INTACT.TOTAL CARE FOR ADL NEEDS. BED ALARM ON.
[2019-10-03 03:08] VITALS: BP 160/89
[2019-10-03 03:28] VITALS: BP 156/89
[2019-10-03 08:21] VITALS: BP 169/98
[2019-10-03 16:33] VITALS: BP 159/82
--- NOTE | 2019-10-03 19:19 | NUR ---
PT KNOWS HER NAME AND SHE CAN FOLLOW SOME COMMANDS, PT IS CONFUSED AT TIME, PT IS EATING AND DRINKING WITH FEEDING,PT IS CONTIUING IV ABX AND ISOLATION POSITIVE COVID, PT'S VS ARE STABLE.
[2019-10-03 19:42] VITALS: BP 174/91
--- NOTE | 2019-10-03 20:07 | NUR ---
PT ALERT. REPEATS YES MAMM AFTER EVERY QUESTION I ASK. NOTIFIED ADA JONES OF ELEVATED BP. SHE STATED SHE WOULD ORDER SOMETHING. OTHER VSS PRESENTLY.
[2019-10-03 22:03] VITALS: BP 155/67
--- NOTE | 2019-10-03 23:17 | NUR ---
PT CONFUSED . BP MODERATELY ELEVATED. NOTIFIED LINK AND LINK KNITTING MACHINE OPERATOR ADA JONES. HYDRALAZINE GIVEN ORDERED. BP DOWN TO 155/67 P 67. ,DENIED PAIN . NO CP. TOLERATED HS SNACK WELL. TURNING PT Q 2 HRS. Z GUARD APPLIED TO BOTTOM ORDERED. HEELS FLOATED ON A PILLOW. NO S/S DISTRESS PRESENTLY.
[2019-10-04 00:10] VITALS: BP 165/90
[2019-10-04 03:10] VITALS: BP 147/77
--- NOTE | 2019-10-04 06:21 | NUR ---
BP BETTER. NO S/S DISTRESS.
[2019-10-04 08:33] VITALS: BP 143/70
[2019-10-04 10:03] LABS: BASOPHILS 0.4 % (0.0-2.0); EOSINOPHILS 0.2 % (0.0-3.0); HEMATOCRIT 32.9 % (37.0-47.0); HEMOGLOBIN 10.9 gm/dL (12.0-15.0); LYMPHOCYTES 25.1 % (24.0-44.0); MCH 30.9 pg (26.0-34.0); MCV 93.8 fL (80.0-100.0); PLATELET COUNT 583 thou/uL (150-400); POLYS 67.3 % (36.0-66.0); RBC 3.51 mil/uL (4.20-5.00); RDW 13.7 % (10.5-14.5); WBC 11.8 thou/uL (4.0-11.0)
[2019-10-04 10:19] LABS: CALCIUM 9.1 mg/dL (8.5-10.1); CREATININE 0.6 mg/dL (0.6-1.0); MAGNESIUM 1.7 mg/dL (1.8-2.4); PHOSPHORUS 2.7 mg/dL (2.5-4.9); POTASSIUM 3.4 mmol/L (3.5-5.1)
[2019-10-04 17:51] VITALS: BP 142/72
--- NOTE | 2019-10-04 19:48 | NUR ---
ASSUMED PATIENT CARE TODAY AT APPROXIMATELY 0700, PATIENT AWAKE AND ALERT, ORIENTED TO SELF. MEDS AND ASSESSMENTS CHARTED. PATIENT O2 SAT STABLE ON ROOM AIR. PATIENT TURNED AND RESPOSITIONED APPROXIMATELY EVERY 2HRS THROUGHOUT SHIFT.ZGUARD APPLIED TO OPEN SPOT ON BOTTOM X2 AFTER BM. UPDATES GIVEN TO PATIENT FAMILY. COVID RESULTED POSITIVE AGAIN TODAY, MD AWARE OF POSITIVE RESULT. NO S/S OF ACUTE DISTRESS NOTED THIS SHIFT. IV FLUIDS DISCONTINUED ORDERED. PATIENT TOLERATING DIET WELL. MD STATES PLAN TO D/C TO FACILITY SOON, POSSIBLY TOMORROW.
[2019-10-04 20:24] VITALS: BP 123/76
[2019-10-05 00:22] VITALS: BP 145/80
--- NOTE | 2019-10-05 00:49 | NUR ---
PT PROGRESSING SLOWLY TOWARDS D/C GOALS. VSS. AFEBRILE PRESENTLY. UNLABORED ON RA AT THIS TIME. DIMINISHED BS ADI. ZGUARD APPLIED TO BUTTOCKS AND COCYX WOUND. NDRAINAGE NOTED. NO S/S DISTRESS. PT IS SLEEPING QUIETLY PRESENTLY.
[2019-10-05 03:51] VITALS: BP 117/59
[2019-10-05 06:33] LABS: CALCIUM 8.7 mg/dL (8.5-10.1); CREATININE 0.5 mg/dL (0.6-1.0); MAGNESIUM 2.2 mg/dL (1.8-2.4); PHOSPHORUS 3.6 mg/dL (2.5-4.9)
[2019-10-05 06:34] LABS: POTASSIUM 3.8 mmol/L (3.5-5.1)
[2019-10-05 08:42] VITALS: BP 151/81
--- NOTE | 2019-10-05 10:32 | NUR ---
BRAYDON reviewed chart and spoke with nursing and attending physician. Pt remains in Enhanced Isolation due to COVID-19. Repeat test ordered yesterday is positive. BRAYDON faxed updated clinical info, vital signs and COVID test results to [facility] for review. BRAYDON left message for Hortensia, at [facility] to discuss pt returning to the facility today. Awaiting final discharge orders/summary at this time. Pt will return as alf care, as she has [place]-Medicaid and will not be eligible for skilled services. Pt will need stretcher transportation. Chart copy requested. BRAYDON is following to assist as needed with discharge planning.
[2019-10-05] MEDS ORDERED: ENOXAPARIN30 MG/0.1 SUBQ (14:17)
[2019-10-05] MEDS ORDERED: ASA81BEC PO (14:17)
[2019-10-05] MEDS ORDERED: RAYOS5 MG PO (14:37)
[2019-10-05] MEDS ORDERED: GLIPIZIDE 10 MG10 MG PO (14:45)
--- NOTE | 2019-10-05 14:57 | NUR ---
ASSUMED PATIENT CARE THIS SHIFT AT APPROXIMATELY 0700. TOLERATING ALL MEALS. O2 SAT STABLE ON ROOM AIR. SET TO BE DISCHARGED THIS SIFT BACK TO [facility], REPORT CALLED TO [facility] TO [facility].
--- NOTE | 2019-10-05 15:30 | NUR ---
IV SALINE LOCK REMOVED AND INSPECTOR MACHINE PARTS REMOVED AT THIS TIME. PATIENT TOLERATED WELL. NO BLEEDING NOTED TO SITE. AWAITING AMBULANCE FOR TRANSPORT BACK TO FACILITY
--- NOTE | 2019-10-05 15:45 | NUR ---
TRANSPORT HERE TO TAKE PATIENT TO [place] AT THIS TIME. LEFT UNIT IN STABLE CONDITION. NO DISTRESS NOTED UPON DISCHARGE
== END 2019-10-05 16:05 | DRG 871 ==
LOC: ER 11:11 → 3W 15:38 → EROBS 15:38 → 3W 16:33
PROVIDERS: Internal Medicine; Student in an Organized Health Care Education/Training Program; ADMIT Internal Medicine; ATTEND Internal Medicine
DX: A41.89 Other specified sepsis (principal); U07.1 COVID-19; J12.89 Other viral pneumonia; M31.9 Necrotizing vasculopathy, unspecified; G93.49 Other encephalopathy; E44.0 Moderate protein-calorie malnutrition; F31.9 Bipolar disorder, unspecified; F41.9 Anxiety disorder, unspecified; K59.00 Constipation, unspecified; I10 Essential (primary) hypertension; E78.5 Hyperlipidemia, unspecified; E11.51 Type 2 diabetes mellitus with diabetic peripheral angiopathy without gangrene; I65.21 Occlusion and stenosis of right carotid artery; G40.909 Epilepsy, unspecified, not intractable, without status epilepticus; Z68.26 Body mass index [BMI] 26.0-26.9, adult; Z86.73 Personal history of transient ischemic attack (TIA), and cerebral infarction without residual deficits
CPT/HCPCS: 10879

== ENCOUNTER 2021-04-01 11:12 | Inpatient (IN) | payer OTHER ==
[~2021-04-01] VITALS: Ht 157.5 cm; Wt 55.9 kg
--- NOTE | ~2021-04-01 | EMS ---
[facility] [address] [place] [address] EMS Patient Care Report Name: ZEKE COTE Room #: 359-P ADM IN M.R.#: [id number] Admission: 04/01/21 Attend Phys: Eduardo Perdomo Discharge: Date of : 59 Report #: [id number] THIS REPORT FOR: //name// Report Transmitted: 04/03/2021 14:28 EMS Care Summary [place], [place] Incident [id number] @ 04/01/2021 10:45 Incident Location [id number] [place] [address] Patient ZEKE COTE Female, 66 Years 1955 Patient Address [address] [place] [address] [address] [place] [address] Patient History Diabetes,Hypertension (HTN),Stroke/CVA,Anxiety, Patient Allergies No known allergies, Patient Medications Insulin, Keppra, ASA, Clopidogrel, Baclofen, Atorvastatin, Amlodipine, Depakote, Thiamine, Chief Complaint Altered mental status Disposition Transported No Lights/[place] Dispatch Reason Breathing Problem Transported To [facility] Narrative Arrived on scene with P36 for a breathing problem. Upon patient contact the AR staff was asked why they had called EMS. AR staff stated that the patient had [facility] [address] [place] [address] EMS Patient Care Report Name: ZEKE COTE Room #: 359-P ADM IN M.R.#: [id number] Admission: 04/01/21 Attend Phys: Eduardo Perdomo Discharge: Date of : 59 Report #: [id number] an altered mental status. When asked how the patient was altered from her baseline mental status the AR staff member stated "I don't know what her (the patient) normal baseline is." AR staff was utterly incapable of providing any information related to the patient's current condition, normal mental status, or previous medical history. AR staff provided paperwork with patient's medical history and then left the patient's room. Patient was able to track me with her eyes upon entering the room. Patient was nonverbal and not able to answer any questions. Patient's skin was hot to the touch. Vital signs and 3 lead EKG obtained. Patient transported and transported to receiving facility without change in patient condition. Initial Vitals @11:03P: 178,CO: 3, @11:03P: 171,BP: 116/87,SpO2: 94, @11:04P: 140,R: 20,BP: 135/88,GCS: 13,SpO2: 92,Revised Trauma: 12, @11:03P: 140,R: 20,BP: 116/82,GCS: 13,Glucose: 288,CO: 2,SpO2: 93,Revised Trauma: 12, Assessments @10:55MENTAL:SKIN:Hot,HEENT:Head/Face: No Abnormalities,Neck/Airway: No Abnormalities,LUNG SOUNDS:Left Upper: No Abnormalities,Right Upper: No Abnormalities,Left Lower: No Abnormalities,Right Lower: No Abnormalities,ABDOMEN:Left Upper: No Abnormalities,Right Upper: No Abnormalities,Left Lower: No Abnormalities,Right Lower: No Abnormalities,PELVIS//GI:No Abnormalities,EXTREMITIES:Right Leg: Paralysis,Right Arm: Paralysis,Left Arm: No Abnormalities,Left Leg: No Abnormalities,PULSE:Radial: 2+ Normal,NEURO:Weakness Right-Sided, Impression Altered Mental Status Procedures @10:55 ALS Assessment Response: UnchangedSucceeded @11:03 3-Lead ECG Response: UnchangedSucceeded Timeline 10:42,Call Received 10:42,Dispatch Notified 10:45,Dispatched 10:45,En Route 10:53,On Scene 10:55,At Patient 10:55,ALS Assessment,Response: UnchangedSucceeded, 11:02,Depart Scene 11:03,BP: 116/82 M,PULSE: 140,RR: 20 R,SPO2: 93 Ox,ETCO2: ,B,PAIN: ,GCS: [address] [address] EMS Patient Care Report Name: ZEKE COTE Room #: 359-P ADM IN [facility]#: [id number] Admission: 04/01/21 Attend Phys: Eduardo Perdomo Discharge: Date of : 59 Report #: [id number] 13, 11:03,3-Lead ECG,Response: UnchangedSucceeded, 11:03,BP: / M,PULSE: 178,RR: R,SPO2: Ox,ETCO2: ,BG: ,PAIN: ,GCS: , 11:03,BP: 116/87 M,PULSE: 171,RR: R,SPO2: 94 Ox,ETCO2: ,BG: ,PAIN: ,GCS: , 11:04,BP: 135/88 M,PULSE: 140,RR: 20 R,SPO2: 92 Ox,ETCO2: ,BG: ,PAIN: ,GCS: 13, 11:15,At Destination 11:16,Call Closed Disclaimer v1.1 Copyright 2021 [employer] This EMS Care Summary contains data elements from the applicable legal record (which may be displayed differently). It is designed to provide pertinent information for the following purposes: continuity of care, clinical quality, and state data reporting. The complete legal record is available to ED staff and administrators of the receiving hospital in [employer]'s Patient Tracker. All data is provided "as is."
[2021-04-01 11:12] VITALS: BP 142/94
[~2021-04-01 11:12] MED LIST changes: +ASA81BEC PO; +ENOXAPARIN30 MG/0.1 SUBQ; +GLIPIZIDE 10 MG10 MG PO; +RAYOS5 MG PO
[2021-04-01 11:45] LABS: URINE BILIRUBIN NEGATIVE (Negative); URINE BLOOD 2+ (Negative); URINE CLARITY SL CLOUDY; URINE COLOR YELLOW; URINE GLUCOSE-RANDOM* NEGATIVE (Negative); URINE KETONES NEGATIVE (Negative); URINE LEUKOCYTES-REFLEX 1+ (Negative); URINE NITRITE-REFLEX NEGATIVE (Negative); URINE PROTEIN (DIPSTICK) 2+ (Negative); URINE SPECIFIC GRAVITY >= 1.030 (1.005-1.035)
[2021-04-01 12:01] LABS: SQUAMOUS 0-3 Few /LPF (0-3)
[2021-04-01 12:02] LABS: BACTERIA-REFLEX 1-9 Few /HPF (None Seen); CRYSTALS None Seen /LPF (None Seen); HYALINE CASTS 0-3 Few /LPF (None Seen); URINE RBC 3-10 Few /HPF (NONE SEEN)
[2021-04-01 12:08] LABS: HEMATOCRIT 41.1 % (37.0-47.0); HEMOGLOBIN 12.1 gm/dL (12.0-15.0); MCH 28.7 pg (26.0-34.0); MCHC 29.5 g/dL (28.0-37.0); MCV 97.3 fL (80.0-100.0); PLATELET COUNT 336 thou/uL (150-400); RBC 4.22 mil/uL (4.20-5.00); RDW 17.5 % (10.5-14.5); WBC 20.8 thou/uL (4.0-11.0)
[2021-04-01 12:21] LABS: CALCIUM 9.7 mg/dL (8.5-10.1); CREATININE 1.4 mg/dL (0.6-1.0); POTASSIUM 3.9 mmol/L (3.5-5.1)
[2021-04-01 12:23] LABS: INR 1.14; PROTIME 12.4 Seconds (10.5-12.1)
[2021-04-01 12:29] LABS: ABSOLUTE NEUTROPHILS 17.7 thou/uL (1.4-8.2); PLATELET ESTIMATE NORMAL
[2021-04-01 12:31] LABS: ALBUMIN 3.3 g/dL (3.4-5.0); TOTAL BILIRUBIN 0.6 mg/dL (0.2-1.0); TOTAL PROTEIN 7.6 g/dL (6.4-8.2)
[2021-04-01] MEDS ORDERED: VITAMIN B-1100 M2 PO (13:22)
--- NOTE | 2021-04-01 20:37 | EKG ---
[place] [address] [facility] [place] [address] ELECTROCARDIOGRAM REPORT Name: ZEKE COTE Room #: 170-6 ADM IN M.R.#: [id number] Admission: 04/01/21 Attend Phys: Eduardo Perdomo Discharge: Date of : 59 Report #: [id number] [facility] ED Test Date: 2021-04-01 Test Time: 11:18:47 Pat Name: ZEKE COTE Department: Room: 170 Gender: F Metallurgical Lab Technician: MORRIS : 1955 Requested By: Carlito Billingsley Order Number: [id number] MD: Bipin Wong Measurements Intervals [place] Rate: 139 P: 65 RI: 203 QRS: 134 QRSD: 78 T: 257 QT: 310 QTc: 472 Interpretive Statements Sinus tachycardia Rightward axis poor R wave progression Baseline wander in lead(s) V1 Compared to ECG 09/25/2019 12:14:23 [place] has shifted rightward Nonspecific change in the ST and T wave segments Electronically Signed On 04-01-2021 20:37:34 AQUATIC INSTRUCTOR by Bipin Wong [email or web address] <ELECTRONICALLY SIGNED> By: Bipin Wong MD, [facility] 04/01/212036 [id number] 1118 Bipin Wong MD, [facility] /EPI
[2021-04-01 22:35] VITALS: BP 110/78
[2021-04-01 23:30] VITALS: BP 99/72
[2021-04-02 02:05] LABS: HEMATOCRIT 38.6 % (37.0-47.0); HEMOGLOBIN 11.1 gm/dL (12.0-15.0); MCH 28.8 pg (26.0-34.0); MCHC 28.7 g/dL (28.0-37.0); MCV 100.3 fL (80.0-100.0); RBC 3.85 mil/uL (4.20-5.00); RDW 17.9 % (10.5-14.5); WBC 15.2 thou/uL (4.0-11.0)
[2021-04-02 02:53] LABS: ALBUMIN 2.7 g/dL (3.4-5.0); CALCIUM 9.1 mg/dL (8.5-10.1); PHOSPHORUS 3.2 mg/dL (2.5-4.9); POTASSIUM 3.7 mmol/L (3.5-5.1)
[2021-04-02 03:37] VITALS: BP 116/80
--- NOTE | 2021-04-02 05:44 | NUR ---
ADMISSION: PT ARRIVED FROM THE ER AT APPROX 2330. PT IS ALERT BUT NOT ORIENTED AND IS DROWSY. PT IS APHASIC AND UNABLE TO PROVIDE INFORMATION. PT CAME WITH PAPERWORK FROM [facility] WITH MEDICATIONS, MEDICAL HISTORY, AND DIET LISTED. THIS NURSE PLACED PAPERWORK IN PT'S CHART AND UPDATED EMR. UPON ASSESSING THE PT, THIS NURSE NOTED A PRESSURE ULCER ON PT'S SACRAL REGION. PICTURE WAS TAKEN AND PLACED IN CHART. PT HAS NO DPOA LISTED. ATTEMPTED TO CALL THE PT'S CHILDREN BUT ALL LINES ARE NO LONGER IN SERVICE. CARE PLAN ACTIVATED AND INTERVENTIONS SET. WILL CONTINUE TO MONITOR.
[2021-04-02 07:19] VITALS: BP 115/85
--- NOTE | 2021-04-02 12:56 | EKG ---
[place] [address] [facility] [place] [address] ELECTROCARDIOGRAM REPORT Name: ZEKE COTE Room #: 359-P ADM IN M.R.#: [id number] Admission: 04/01/21 Attend Phys: Eduardo Perdomo Discharge: Date of : 59 Report #: [id number] [facility] ED Test Date: 2021-04-01 Test Time: 11:17:58 Pat Name: ZEKE COTE Department: Room: 359 Gender: F Yeast Fermentation Attendant: MORRIS : 1955 Requested By: Zoraida Ricks Order Number: [id number] MD: Bipin Wong Measurements Intervals [place] Rate: 140 P: 37 MS: 133 QRS: 105 QRSD: 105 T: 52 QT: 391 QTc: 597 Interpretive Statements Sinus tachycardia Poor R wave progression Prolonged QT interval Baseline wander in lead(s) II,III,aVR,aVF Compared to ECG 09/25/2019 12:14:23 Prolonged QT interval now present Electronically Signed On 04-02-2021 12:56:44 PSYCHOLOGY PHYSICIAN by Bipin Wong [email or web address] <ELECTRONICALLY SIGNED> By: Bipin Wong MD, [facility] 04/02/21 1256 1117 1117 Bipin Wong MD, [facility] /EPI
[2021-04-02 15:35] VITALS: BP 120/82
--- NOTE | 2021-04-02 17:25 | NUR ---
RN ASSUMED PT'S CARE AT 0700AM, PT OPENS HER EYES, BUT PT DOES NOT FOLLOW COMMANDS, AND PT IS CONFUSED , PT IS ON O2 1-2L/MIN/NC, PT IS ON NPO , PT IS CONTINUING IV FLUID , AND IV ABX, PT 'S VS AND O2SAT ARE STABLE BY THIS TIME, PT NEEDS TOTLAL CARE ,
[2021-04-02 19:28] VITALS: BP 112/84
[2021-04-02 23:40] VITALS: BP 108/81
--- NOTE | 2021-04-03 00:36 | NUR ---
PT NONVERBAL. OPENS EYES SPONTANEOUSLY AND MAKES INCOMPREHENSIBLE SOUNDS. VSS AFEBRILE. SATS WNL ON 1LNC. NPO .ST TO EVALUATE IN AM. ZGAR DTO WOUNDAND BUTTOCKS. TURNING Q 2 HRS. NO S/S DISTRESS PRESENTLY SR ON MONITOR 93.BED DOWN. BED ALARM IS ON.
[2021-04-03 04:54] VITALS: BP 118/80
[2021-04-03 05:55] LABS: HEMATOCRIT 29.4 % (37.0-47.0); MCH 29.1 pg (26.0-34.0); MCHC 30.5 g/dL (28.0-37.0); MCV 95.7 fL (80.0-100.0); RBC 3.08 mil/uL (4.20-5.00); RDW 16.9 % (10.5-14.5); WBC 15.2 thou/uL (4.0-11.0)
[2021-04-03 06:12] LABS: ALBUMIN 2.3 g/dL (3.4-5.0); CALCIUM 8.3 mg/dL (8.5-10.1); CREATININE 0.9 mg/dL (0.6-1.0)
--- NOTE | 2021-04-03 06:39 | NUR ---
SCHWAB CHANGED DUE TO IT WAS LEAKING AND APPEARED TO BE INFLATED NOT IN THE BLADDER. SMALL AMT OF URINE HAS RETURNED TO CATHETER NOTED PINK TINGED DUE TO DIFFICULTY REPLACING CATHETER. BLADDER SCANNED PT 0 IN BLADDER AT TIME OF PLACEMENT. PT ALSO WAS INC OF URINE X2 IN LG AMTS.
[2021-04-03 07:24] VITALS: BP 122/91
[2021-04-03 07:47] LABS: POTASSIUM 2.7 mmol/L (3.5-5.1)
--- NOTE | 2021-04-03 09:12 | NUR ---
WOUND CONSULT: THE WOUNDS WERE ASSESSED. THERE ARE MULTIPLE AREAS THAT ARE SUGGESTIVE OF FRICTION VS PRESSURE. POSSIBLY TAPE SHEARING. THERE ARE WOUNDS TO THE SACRUM REGION AND RIGHT BUTTOCKS. THE PATIENT IS CURRENTLY USING LOW AIR LOSS THERAPY. THE PUMP IS ON THE ISOFLEX SETTING. RECOMMENDATIONS: -CONTINUE LOW AIR LOSS PUMP. -TURN Q2H -APPLY ZGUARD, COVER WITH A SACRAL FOAM, DAILY/PRN
--- NOTE | 2021-04-03 12:50 | NUR ---
UPDATED SAMIA, DAUGHTER, PATIENT PRIVANCY CODE VERIFIED. NO OVERNIGHT OR NEW UPDATES, AWAITING ST [facility]ET[facility] FOR RECOMENDATIONS. ALL QUESTIONS AWNSERED TO DAUGHTERS SATISFACTION.
[2021-04-03 15:45] VITALS: BP 127/86
[2021-04-03 19:35] VITALS: BP 123/87
--- NOTE | 2021-04-04 03:15 | NUR ---
PT STILL MAINLY NONVERBAL BUT WILL SPEAK COHERENTLY AT TIMES, SHE USUALLY REPEATS "YES MAMAM". INC OF STOOL. ZGARD APPLIED FOAM DRESSING APPLIED. PT IS ON MINDY MATTRESS. NO S/S PAIN. VSS AFEBRILE. IVFS/ABX INFUSING ORDERED.
[2021-04-04 04:08] LABS: ABSOLUTE NEUTROPHILS 8.8 thou/uL (1.4-8.2); BASOPHILS 0.2 % (0.0-2.0); EOSINOPHILS 0.6 % (0.0-3.0); HEMATOCRIT 28.5 % (37.0-47.0); HEMOGLOBIN 8.8 gm/dL (12.0-15.0); LYMPHOCYTES 23.5 % (24.0-44.0); MCH 28.6 pg (26.0-34.0); MCHC 30.8 g/dL (28.0-37.0); MCV 92.8 fL (80.0-100.0); MONOCYTES 3.6 % (1.0-8.0); PLATELET COUNT 174 thou/uL (150-400); POLYS 72.1 % (36.0-66.0); RBC 3.07 mil/uL (4.20-5.00); WBC 12.2 thou/uL (4.0-11.0)
[2021-04-04 04:40] VITALS: BP 115/82
[2021-04-04 05:37] LABS: ALBUMIN 2.1 g/dL (3.4-5.0); CALCIUM 7.9 mg/dL (8.5-10.1); CREATININE 0.7 mg/dL (0.6-1.0); PHOSPHORUS 3.2 mg/dL (2.5-4.9)
[2021-04-04 06:03] LABS: POTASSIUM 2.5 mmol/L (3.5-5.1)
--- NOTE | 2021-04-04 07:41 | NUR ---
NOTIFIED [employer] DRIVER K 2.5. STARTED POTASSIUM REPLACEMENT 40 MEQ OVER 4 HRS X2. ORDERED.
[2021-04-04 07:51] VITALS: BP 148/103
--- NOTE | 2021-04-04 09:15 | NUR ---
WOUND CARE F/U: A FOLLOW UP ASSESSMENT WAS COMPLETED WITH THE HELP OF THE RN. THE PATIENT HAS ACUTE DIARRHEA. THE WOUNDS ARE UNGHANGED. DUE TO THE DIARRHEA I WILL D/C THE SACRAL FOAM AND USE ONLY BARRIER CREAM. RECOMMENDATIONS; -D/C THE SACRAL FOAM/ USE BARRIER CREAM THICKLY AFTER EACH INCONTINENT EPISODE OR BID IF THE DIARRHEA RESOLVES. RN PRESENT.
--- NOTE | 2021-04-04 14:37 | NUR ---
INITIAL ASSESSMENT: BRAYDON reviewed chart and spoke with nursing and attending physician. Pt was admitted from [facility] due to pnuemonia/COVID. Pt placed in Enhanced Isolation. Pt with hx DM, CVA, HTN, Anxiety, Bipolar Disorder. 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 GI consulted today for peg tube placement. BRAYDON left voice message for pt's dtr, Yessica ([phone]) to provide update and confirm discharge plan. BRAYDON faxed clinical info to [facility] for review. Spoke with Chasidy in admissions to provide update. Plan is for pt to discharge back to [facility] when medically stable. BRAYDON is following to assist as needed with discharge planning.
[2021-04-04 15:26] VITALS: BP 170/34
--- NOTE | 2021-04-04 19:09 | NUR ---
RN ASSUMED PT'S CARE AT 0700-1900PM, PT OPENS HER EYES, BUT PT IS CONFUSED, AND PT CANNOT FOLLOW COMMANDS, PT IS OFF O2 AND SHE IS ON ROOM AIR, PT'S O2SAT AND VS ARE STABLE AT DAY SHIFT, PT IS ON NPO, PT IS CONTINUING IV FLUD , IV ABX AND LOW POTASSIUM REPLACEMENT, PT IS TOTAL CARE .
[2021-04-04 19:43] VITALS: BP 147/88
[2021-04-05 04:08] LABS: CALCIUM 7.9 mg/dL (8.5-10.1); CREATININE 0.6 mg/dL (0.6-1.0)
[2021-04-05 04:30] VITALS: BP 133/91
[2021-04-05 04:48] LABS: POTASSIUM 2.8 mmol/L (3.5-5.1)
--- NOTE | 2021-04-05 05:37 | NUR ---
PT NONVERBAL THROUGHOUT MUCH OF THE SHIFT, DOES NOT ANSWER ANY ORIENTATION QUESTIONS, JUST REPEATS "YES, SIR." PT INCONTINENT OF BOWEL X3 THIS SHIFT. SCHWAB IN PLACE WITH GOOD CLEAR YELLOW URINARY OUTPUT. WOUND TO SACRUM AREA CLEANED AND ZGUARD APPLIED WITH EACH INCONTINENT EPISODE. FEVER OF 101.2 AT BEGINNING OF SHIFT, PROVIDER NOTIFIED, RECEIVED NEW ORDER FOR TYLENOL SUPPOSITORY DUE TO PT NPO STATUS. TEMP DOWN TO 98.5 POST ADMINISTRATION, BACK UP TO 99.0 THIS MORNING. CRITICAL POTASSIUM OF 2.8 REPORTED BY LAB. PROVIDER NOTIFIED, RECEIVED ORDERS TO GIVE 60 MEQ OF KCL. FIRST BAG HUNG. VSS OTHERWISE. WILL CONTINUE TO OBSERVE FOR CHANGES
[2021-04-05 07:43] VITALS: BP 129/80
--- NOTE | 2021-04-05 14:48 | NUR ---
BRAYDON reviewed chart and spoke with nursing and attending physician. Pt remains in Enhanced Isolation due to COVID. Pt is afebrile and on room air. Pt is on IV abx. Peg tube placement is planned for Saturday, 04/10. Attending physician started pt on pureed diet with thickened liquids today. Pt may be stable to discharge back to [facility] tomorrow, and could return on Saturday for peg tube placement. BRAYDON spoke with Chasidy in admissions at [facility] to provide update. Chasidy states they are able to accept pt back and will make arrangements for pt to return for peg tube placement. Per Chasidy, [facility] is able to order ST to work with pt in the facility, even though she only had Medicaid. BRAYDON spoke with pt's dtr, Yessica, via phone to provide update. Yessica had questions regarding diet, peg tube placement and discharge orders. BRAYDON requested attending physician contact Yessica to provide update and answer questions. BRAYDON is following to assist as needed with discharge planning.
[2021-04-05 15:41] VITALS: BP 111/74
--- NOTE | 2021-04-05 18:37 | NUR ---
ASSUMED PATIENT CARE AT 0700. ALERT. PATIENT HAD 100% LUNCH. LOOSE STOOL. SLOWLY TOWARDS POC GOALS,
[2021-04-05 19:32] VITALS: BP 149/93
[2021-04-06 03:34] VITALS: BP 143/94
--- NOTE | 2021-04-06 03:54 | NUR ---
PT IS ALERT BUT DOES NOT ANSWER ORIENTATION QUESTIONS DUE TO COGNITIVE IMPAIRMENT. SCHWAB REMAINS IN PLACE TO DD, DRAINING CLEAR YELLOW URINE. WOUND CARE TO SACRUM PER ORDERS. MINDY MATTRESS AND OFFLOADING BOOTS IN PLACE, REPOSITIONED AT ROUTINE INTERVALS. VSS. WILL CONTINUE TO OBSERVE FOR CHANGES
[2021-04-06 04:56] LABS: CALCIUM 7.7 mg/dL (8.5-10.1); CREATININE 0.4 mg/dL (0.6-1.0); PHOSPHORUS 2.9 mg/dL (2.5-4.9); POTASSIUM 3.9 mmol/L (3.5-5.1)
[2021-04-06 07:49] VITALS: BP 141/84
[2021-04-06] MEDS ORDERED: SPIRONOLACTONE25 M1 PO (10:45)
--- NOTE | 2021-04-06 10:47 | NUR ---
updated patient daughter, Yessica, code verified. all questions awnsered to daughter's satifaction.
--- NOTE | 2021-04-06 11:26 | NUR ---
DISCHARGE NOTE: BRAYDON reviewed chart and spoke with nursing and attending physician. Pt remains in Enhanced Isolation due to COVID. Pt is afebrile and on room air. Pt is medically stable for discharge back to [place] today. BRAYDON discussed case with GI CEPHALOMETRIC ANALYST. No plans for peg tube placement at this time. Calorie count to be completed at the facility. BRAYDON faxed discharge ppwk to [place] and confirmed info was received with Chasidy, in admissions. Chasidy states they are able to accept pt back today. Stretcher van transportation scheduled for [phone] per facility's arrangements. BRAYDON spoke with pt's dtr, Yessica, via phone to provide update and notify of discharge plan. Yessica is aware and in agreement with plan. Chart copy requested. Nursing provided with number to call report. No additional SW needs identified at this time, but is available to assist should needs arise.
--- NOTE | 2021-04-06 11:39 | NUR ---
WOUND CARE F/U: THE SACRAL REGION IS RAPIDLY IMPROVING. NO S/S OF INFECTION. LINDA WE WILL BE ABLE TO D/C THIS PATIENT SOON FROM WOUND CARE. DISCUSSED WITH LUCIUS.
--- NOTE | 2021-04-06 15:31 | NUR ---
PATIENT DISCHARGED BACK TO [place] 04/06/21 AT 1530. TRANSPORTATION PROVIDED BY TRANSPORTATION [facility]. PATIENT IN STABLE CONDITION. IV REMOVED. PATIENT LEFT WITH ALL BELONGINGS.
== END 2021-04-06 15:38 | DRG 177 ==
LOC: ER 11:12 → 3W 13:24 → EROBS 13:24 → 3W 23:24
PROVIDERS: Emergency Medicine; ADMIT Hospitalist; ATTEND Hospitalist
DX: U07.1 COVID-19 (principal); J69.0 Pneumonitis due to inhalation of food and vomit; G93.41 Metabolic encephalopathy; E87.0 Hyperosmolality and hypernatremia; I69.351 Hemiplegia and hemiparesis following cerebral infarction affecting right dominant side; N39.0 Urinary tract infection, site not specified; N17.9 Acute kidney failure, unspecified; Z20.822 Contact with and (suspected) exposure to COVID-19; E87.6 Hypokalemia; L89.159 Pressure ulcer of sacral region, unspecified stage; I69.320 Aphasia following cerebral infarction; F31.9 Bipolar disorder, unspecified; F41.9 Anxiety disorder, unspecified; E78.5 Hyperlipidemia, unspecified; I10 Essential (primary) hypertension; B96.20 Unspecified Escherichia coli [E. coli] as the cause of diseases classified elsewhere
CPT/HCPCS: 10879

== ENCOUNTER 2021-04-30 17:31 | Inpatient (IN) | payer OTHER ==
[~2021-04-30] VITALS: Ht 162.6 cm; Wt 62.6 kg
--- NOTE | ~2021-04-30 | EMS ---
[address] [address] EMS Patient Care Report Name: ZEKE COTE Room #: 170-10 ADM IN M.R.#: [id number] Admission: 04/30/21 Attend Phys: Nieves Wetzel MD Discharge: Date of : 59 Report #: [id number] THIS REPORT FOR: //name// Report Transmitted: 04/30/2021 21:21 EMS Care Summary [place], [place]/[facility] Incident [phone] @ 04/30/2021 16:45 Incident Location [address] [place] [address] [id number] Patient ZEKE COTE Female, 66 Years 1955 Patient Address [address] [place] [address] [address] [id number] Patient History Diabetes,Hypertension (HTN),Stroke/CVA,Anxiety, Patient Allergies No known allergies, Patient Medications Atorvastatin, Keppra, Clopidogrel, Insulin, ASA, Depakote, Thiamine, Amlodipine, Baclofen, Chief Complaint Dehydrated, possible UTI Disposition Transported No Lights/[place]ama Dispatch Reason Sick Person Transported To [facility] Narrative Called for a sick. Upon arrival, pt was lying in bed, lethargic. [facility] said this has been going on for a couple of days getting worse, they are [facility] [address] [place] [address] EMS Patient Care Report Name: ZEKE COTE Room #: 170-10 ADM IN [place].#: [id number] Admission: 04/30/21 Attend Phys: Nieves Wetzel MD Discharge: Date of : 59 Report #: [id number] concerned she is dehydrated or has a UTI. At this time, she is tachycardic as well. Vitals obtained. She was moved to the EMS cot and loaded into the ambulance w/o incident. Vitals obtained. 4 Lead. 20g IV SL and D-stick with 400cc NS infused. Vitals repeated. En route: no significant changes. RR to the ER. Arrived: pt taken to ER #8 and moved to their bed w/o incident. Pt care & report to ER staff. Initial Vitals @17:09P: 132,CO: 0,WA Suspected: false @17:12P: 126,WA Suspected: false @17:05P: 125,R: 20,BP: 137/95,Pain: 0/10,GCS: 11,SpO2: 100,Revised Trauma: 11, @17:16P: 124,R: 20,BP: 140/96,Pain: 0/10,GCS: 11,Glucose: 280,SpO2: 97,Revised Trauma: 11,WA Suspected: false @16:55P: 128,R: 18,BP: 127/88,Pain: 0/10,GCS: 11,Revised Trauma: 11, Assessments @16:54MENTAL:Confused,Person Oriented,Other,SKIN:HEENT:LUNG SOUNDS:ABDOMEN:PELVIS//GI:Pelvis GUOther,EXTREMITIES:Left Arm: Paralysis,Left Leg: Paralysis,Left Arm: Other,Left Leg: Other,Right Arm: No Abnormalities,Right Leg: No Abnormalities,PULSE:Radial: 2+ Normal,NEURO:Weakness Left-Sided, Impression Altered Mental Status Procedures @17:12 IV Therapy - Saline Lock 8cc (20 ga) Site: Forearm-Right Response: UnchangedSucceeded @17:15 IV Therapy - Normal Saline (.9% NaCl) 400cc (20 ga) Site: Forearm-Right Response: UnchangedSucceeded @17:23 IV Therapy - Saline Lock cc (20 ga) Site: Antecubital-Right Response: UnchangedFailed @17:00 Stretcher Response: Unchanged @17:09 3-Lead ECG Response: UnchangedSucceeded @16:54 ALS Assessment Response: UnchangedSucceeded Timeline 16:43,Call Received 16:43,Dispatch Notified 16:45,Dispatched 16:46,En Route 16:52,On Scene 16:54,At Patient 16:54,ALS Assessment,Response: UnchangedSucceeded, 16:55,BP: 127/88 M,PULSE: 128,RR: 18 R,SPO2: Ox,ETCO2: ,BG: ,PAIN: 0,GCS: 11, [facility] [address] [place] [address] EMS Patient Care Report Name: ODILIA COTEORES Room #: 170-10 ADM IN M.R.#: [id number] Admission: 04/30/21 Attend Phys: Nieves Wetzel MD Discharge: Date of : 59 Report #: [id number] 17:00,Stretcher,Response: Unchanged 17:05,BP: 137/95 M,PULSE: 125,RR: 20 R,SPO2: 100 Ox,ETCO2: ,BG: ,PAIN: 0,GCS: 11, 17:09,3-Lead ECG,Response: UnchangedSucceeded, 17:09,BP: / M,PULSE: 132,RR: R,SPO2: Ox,ETCO2: ,BG: ,PAIN: ,GCS: , 17:12,IV Therapy - Saline Lock 8cc 20 ga Site: Forearm-Right,Response: UnchangedSucceeded, 17:12,BP: / M,PULSE: 126,RR: R,SPO2: Ox,ETCO2: ,BG: ,PAIN: ,GCS: , 17:15,IV Therapy - Normal Saline (.9% NaCl) 400cc 20 ga Site: Forearm-Right,Response: UnchangedSucceeded, 17:16,BP: 140/96 M,PULSE: 124,RR: 20 R,SPO2: 97 Ox,ETCO2: ,B,PAIN: 0,GCS: 11, 17:18,Depart Scene 17:23,IV Therapy - Saline Lock cc 20 ga Site: Antecubital-Right,Response: UnchangedFailed, 17:27,At Destination 17:46,Call Closed Disclaimer v1.1 Copyright 2021 [employer] This EMS Care Summary contains data elements from the applicable legal record (which may be displayed differently). It is designed to provide pertinent information for the following purposes: continuity of care, clinical quality, and state data reporting. The complete legal record is available to ED staff and administrators of the receiving hospital in [employer]'s Patient Tracker. All data is provided "as is."
[~2021-04-30 17:31] MED LIST changes: +SPIRONOLACTONE25 M1 PO; +VITAMIN B-1100 M2 PO
[2021-04-30 17:32] VITALS: BP 191/95
[2021-04-30 18:20] LABS: ABSOLUTE NEUTROPHILS 15.9 thou/uL (1.4-8.2); BASOPHILS 0.6 % (0.0-2.0); EOSINOPHILS 0.1 % (0.0-3.0); HEMATOCRIT 29.6 % (37.0-47.0); HEMOGLOBIN 9.4 gm/dL (12.0-15.0); MCH 27.6 pg (26.0-34.0); MCHC 31.8 g/dL (28.0-37.0); MCV 86.7 fL (80.0-100.0); PLATELET COUNT 434 thou/uL (150-400); POLYS 81.3 % (36.0-66.0); RBC 3.41 mil/uL (4.20-5.00); RDW 17.8 % (10.5-14.5); WBC 19.5 thou/uL (4.0-11.0)
[2021-04-30 18:22] LABS: CALCIUM 8.8 mg/dL (8.5-10.1); CREATININE 7.7 mg/dL (0.6-1.0); POTASSIUM 3.6 mmol/L (3.5-5.1)
[2021-04-30 18:32] LABS: ALBUMIN 2.2 g/dL (3.4-5.0); TOTAL BILIRUBIN 0.4 mg/dL (0.2-1.0); TOTAL PROTEIN 7.1 g/dL (6.4-8.2)
[2021-04-30 18:40] LABS: APTT 26.4 Seconds (24.5-32.8); INR 1.14; PROTIME 12.3 Seconds (10.5-12.1)
[2021-04-30 18:55] LABS: URINE BILIRUBIN NEGATIVE (Negative); URINE BLOOD 2+ (Negative); URINE CLARITY CLOUDY; URINE COLOR YELLOW; URINE GLUCOSE-RANDOM* NEGATIVE (Negative); URINE KETONES NEGATIVE (Negative); URINE NITRITE-REFLEX NEGATIVE (Negative); URINE PROTEIN (DIPSTICK) 1+ (Negative); URINE SPECIFIC GRAVITY >= 1.030 (1.005-1.035); URINE UROBILINOGEN 0.2 E.U./dl (0.2-1.0)
[2021-04-30 18:57] LABS: URINE LEUKOCYTES-REFLEX 2+ (Negative)
[2021-04-30 19:26] LABS: AMORPHOUS URATES Few /LPF (None Seen); BACTERIA-REFLEX >30 Many /HPF (None Seen); CASTS None Seen /LPF (None Seen); MUCUS 4-6 Moderate strn/LPF (None Seen); SQUAMOUS None Seen /LPF (0-3); URINE RBC 1-2 Rare /HPF (NONE SEEN); URINE WBC-REFLEX >25 Many /HPF (0-5)
[2021-04-30 19:27] LABS: CALCIUM OXALATE 4-10 Moderate /LPF (None Seen); YEAST-REFLEX Present (None Seen)
--- NOTE | 2021-04-30 19:51 | NUR ---
SCHWAB FLUSHED WITH 30ML STERILE WATER. FLUSHED EASILY, IMMEDIATE RETURN OF CLOUDY SEDIMENTED URINE.
[2021-04-30 23:44] VITALS: BP 141/83
[2021-05-01 01:05] LABS: HEMATOCRIT 27.7 % (37.0-47.0); HEMOGLOBIN 8.7 gm/dL (12.0-15.0); MCH 26.8 pg (26.0-34.0); MCHC 31.2 g/dL (28.0-37.0); MCV 85.9 fL (80.0-100.0); RBC 3.23 mil/uL (4.20-5.00); RDW 17.3 % (10.5-14.5); WBC 16.8 thou/uL (4.0-11.0)
[2021-05-01 01:15] LABS: CALCIUM 8.7 mg/dL (8.5-10.1)
[2021-05-01 01:18] LABS: CREATININE 5.2 mg/dL (0.6-1.0)
[2021-05-01 01:20] LABS: POTASSIUM 2.9 mmol/L (3.5-5.1)
[2021-05-01 03:44] VITALS: BP 123/74
--- NOTE | 2021-05-01 07:19 | NUR ---
Pt report received from LUCIUS Rose
--- NOTE | 2021-05-01 07:41 | EKG ---
[address] [address] ELECTROCARDIOGRAM REPORT Name: ZEKE COTE Room #: 170-10 ADM IN M.R.#: [id number] Admission: 04/30/21 Attend Phys: Nieves Wetzel MD Discharge: Date of : 59 Report #: [id number] [facility] ED Test Date: 2021-04-30 Test Time: 17:35:26 Pat Name: ZEKE COTE Department: Room: 170 Gender: [facility] Specialist: RADHA : 1955 Requested By: Shaun Spaulding Order Number: [id number] MD: Chris Guzman Measurements Intervals [place] Rate: 122 P: 23 NM: 149 QRS: 47 QRSD: 85 T: 52 QT: 336 QTc: 479 Interpretive Statements Sinus tachycardia Anterior infarct, old Compared to ECG 04/01/2021 11:18:47 Myocardial infarct finding now present Right-axis deviation no longer present Poor R-wave progression no longer present Electronically Signed On 05-01-2021 7:40:54 EMERGENCY DEPARTMENT COORDINATOR by Chris Guzman [email or web address] <ELECTRONICALLY SIGNED> By: Chris Guzman MD, [facility] 05/01/21 0740 1735 1735 Chris Guzman MD, FAC /EPI
[2021-05-01 09:33] VITALS: BP 143/89
--- NOTE | 2021-05-01 18:59 | NUR ---
report given to LUCIUS serrano
[2021-05-01 19:46] VITALS: BP 148/50
[2021-05-01 20:06] VITALS: BP 147/83
[2021-05-01 21:10] VITALS: BP 146/82
[2021-05-01 21:37] VITALS: BP 150/89
--- NOTE | 2021-05-02 03:06 | NUR ---
RECEIVED CARE OF THIS PATIENT AT 2119 VIA CART FROM ED ACCOMPANIED BY ED PERSONEL. PATIENT ALERT AND ORIENTED TO SELF ONLY. OPENS EYES WHEN NAME CALLED. WILL NOT RESPOND TO QUESTIONS OR COMMANDS. WOUND ON SACRUM AND L HIP. IV IN RFA WITH HEPARIN INFUSING. IV IN LEJ WITH FLUIDS INFUSING. RESPONDS TO PAINFUL STEMULI. DOES NOT APPEAR TO BE IN PAIN.SLEPT LITTLE THIS SHIFT.
[2021-05-02 04:02] VITALS: BP 135/79
[2021-05-02 06:31] LABS: HEMATOCRIT 25.9 % (37.0-47.0); HEMOGLOBIN 7.5 gm/dL (12.0-15.0); MCH 26.6 pg (26.0-34.0); RBC 2.82 mil/uL (4.20-5.00); WBC 13.6 thou/uL (4.0-11.0)
[2021-05-02 06:36] LABS: CALCIUM 8.9 mg/dL (8.5-10.1); POTASSIUM 3.4 mmol/L (3.5-5.1)
[2021-05-02 06:44] LABS: CREATININE 1.7 mg/dL (0.6-1.0)
[2021-05-02 06:45] LABS: MCV 91.9 fL (80.0-100.0)
[2021-05-02 07:40] VITALS: BP 145/81
--- NOTE | 2021-05-02 07:55 | HC ---
[facility] [place] [address] CONSULTATION Name: ZEKE COTE Room #: 204-P ADM IN M.R.#: [id number] Admission: 04/30/21 Attend Phys: Nieves Wetzel MD Discharge: Date of : 59 Report #: [id number] THIS REPORT FOR: cc: LUCILLE - Family physician unknown FAM - Family physician unknown Archie English MD ~ DATE OF SERVICE: 05/01/2021 INFECTIOUS DISEASE CONSULTATION ATTENDING PHYSICIAN: Dr. Wetzel. REASON FOR EVALUATION: Severe sepsis secondary to complicated urinary tract infection with severe renal failure. HISTORY OF PRESENT ILLNESS: Chart reviewed. The patient examined. This is a 66-year-old woman with known vasculopathy, has previous stroke, left her with right-sided deficits, speech difficulties. She resides in a facility. They were concerned about worsening encephalopathy 2-3 days prior to admission. It is notable she has a chronic indwelling Gibbs catheter. This was felt to be completely obstructed. Initial evaluation noted a markedly elevated white count of 19.5. Coronavirus testing was negative and a creatinine of 7.7 in 03/2021. Creatinine was known to be 0.4. Lactic acid 1.5. Imaging suggested bladder outlet obstruction with moderate bilateral hydronephrosis, right-sided perinephric periureteral fluid. CT noted chronic changes in the previous stroke involving the head. Urinalysis did show marked pyuria and bacteriuria. Chest x-ray actually showed no acute process. Followup CT did include PE, showed evidence of bilateral pulmonary emboli. Blood cultures collected at the time of admission are sterile thus far. Urine culture is pending. Review of previous cultures showed growth of E. coli 03/2021. It was generally susceptible with the exception of quinolones, empirically started on therapy with Zosyn. Creatinine is somewhat improved with resolution of the obstructive process involving the Gibbs. She really is not responsive at this point. Her eyes are open. It is difficult to ascertain her degree of comprehension. ALLERGIES: None known. CURRENT MEDICATIONS: Include insulin lispro, pantoprazole, Zosyn, heparin, p.r.n. ondansetron. PAST MEDICAL HISTORY: As described above, diabetes mellitus, known vasculopathy with previous stroke, right-sided hemiparesis, expressive aphasia, history of bipolar disorder, anxiety, hypertension, hyperlipidemia. SOCIAL HISTORY: Nonsmoker, no ethanol, no illicit drug use. [facility] [address] [place] [address] CONSULTATION Name: ZEKE COTE Room #: 204-P [facility] IN M.R.#: [id number] Admission: 04/30/21 Attend Phys: Nieves Wetzel MD Discharge: Date of : 59 Report #: [id number] FAMILY HISTORY: Noncontributory. REVIEW OF SYSTEMS: Not obtainable. PHYSICAL EXAMINATION: GENERAL: She appears chronically ill and undernourished, markedly encephalopathic, mild to moderate distress. VITAL SIGNS: Temperature 98, pulse 106, respirations 20, blood pressure 143/89. SKIN: Warm, dry, no rashes. HEENT: Normocephalic. Extraocular muscles intact. NECK: Some decreased range of motion. LUNGS: Diminished breath sounds. Few retained upper airway secretions with transmitted sounds. HEART: Regular, borderline bradycardic. I do not appreciate a murmur. ABDOMEN: Slightly distended. No overt peritoneal signs. GENITOURINARY AND RECTAL: Deferred. LABORATORY DATA: Blood cultures sterile thus far. Electrolytes: Sodium 146, potassium 2.9, chloride 110, bicarbonate is 21, anion gap of 15, BUN and creatinine 79 and 5.2, is down from 7.7, estimated GFR of 10. CBC: White count of 16.8, H and H 8.7 and 27.7, platelets of 355. Urinalysis described above, greater than 25 white cells, greater than 30 bacteria. There is some yeast present. CT abdomen and pelvis described above. 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 Continue combination therapy with Zosyn. We will add fluconazole pending the results of the culture since the Gibbs has been corrected. I would expect the renal failure to improve as well, resolution of hydronephrosis. She is quite tenuous at this point, certainly at risk for complications including aspiration, reintroduce nutrition as able. She will need swallow study, etc. Continue to monitor expectantly. <ELECTRONICALLY SIGNED> By: Archie English MD 05/02/21 0755 0940 1220 Archie English MD /nt
[2021-05-02 11:40] VITALS: BP 162/80
[2021-05-02 15:20] VITALS: BP 163/85
--- NOTE | 2021-05-02 17:01 | NUR ---
PATIENT ADMITTED FOR MAGDA, POLYNEPHRITIS. CHART REVIEWED AND DISCUSSED WITH CARE TEAM. CM MET WITH PT THIS DAY. PT DID AROUSE FOR ASSESSMENT. CM CALLED PTS DAUGHTER AMELIE COTE WITH NO ANSWER. CM AWAITING THERAPY DC RECOMMENDATIOS AT THIS TIME. CM FOLLOWING FOR DC PLANNING.
[2021-05-02 19:17] VITALS: BP 142/75
--- NOTE | 2021-05-02 19:57 | NUR ---
Pt has answered more simple yes/no questions as the day progressed. VS have been stable and pt has remained afebrile. BP was elevated in afternoon and home spironolactone has been added to MAR to be started at 2100 tonight. When abdomen is palpated pt grimaces and frowns and pt appears to be uncomfortable; warm blankets, quiet and dark enviroment and tylenol were provided to provide comfort; unable to assess level or characteristics of pain d/t pt's underlying condition. PT and OT evaluated pt and have planned to combine therapy tomorrow. ST evaluated pt and placed her on pureed diet with honey thickened liquids. Pt's daughter and sister were at bedside; sister fed pt dinner and pt ate almost entire meal. No current concerns. Continue to monitor.
[2021-05-03 03:11] VITALS: BP 149/74
[2021-05-03 07:20] VITALS: BP 173/84
[2021-05-03 07:42] LABS: HEMATOCRIT 26.2 % (37.0-47.0); HEMOGLOBIN 7.8 gm/dL (12.0-15.0); MCH 26.9 pg (26.0-34.0); MCHC 29.8 g/dL (28.0-37.0); MCV 90.4 fL (80.0-100.0); RBC 2.9 mil/uL (4.20-5.00); RDW 17.4 % (10.5-14.5); WBC 13.2 thou/uL (4.0-11.0)
[2021-05-03 07:58] LABS: CALCIUM 8.5 mg/dL (8.5-10.1); POTASSIUM 3.8 mmol/L (3.5-5.1)
--- NOTE | 2021-05-03 10:27 | NUR ---
WOUND CONSULT; A SACRAL WOUND WAS IDENTIFIED THAT IS UNSTAGEABLE DUE TO NECROSIS IN THE WOUND BED WHICH MEASURES: 7 X 2 X 0.1. THIS WOUND HAS IRREGULAR MARGINS. NO ODOR OR ACUTE S/S OF INFECTION. THE RIGHT LAT MALLEOLOUS HAS S/S CONSISTANT WITH A DTI. THE SKIN IS INTACT. RECOMMENDATIONS: -CONTINUE LOW AIRLOSS WITH Q2H TURNING. -APPLY A SACRAL FOAM, CHANGE M/W/F OR PRN IF SOILED. -Q2H TURNING AT A MINIMUM. RN PRESENT.
[2021-05-03 11:30] VITALS: BP 159/88
[2021-05-03 15:35] VITALS: BP 132/78
--- NOTE | 2021-05-03 15:57 | NUR ---
CHART REVIEWED AND DISCUSSED WITH CARE TEAM. CM SPOKE TO PTS DAUGHTER AMELIE VIA PHONE THIS DAY. PLAN IF FOR PT TO RETURN TO [facility] ONCE MEDICALLY STABLE TO DC. DAUGHTER INQUIRING IF PT WILL TRANSFER BACK TO LTC WITH SCHWAB CATH. PTS PHYSICIAN REQUEST NURSING DO VOIDING TRIAL THIS AM. SCHWAB REMOVED AND PT UNABLE TO VOID. BLADDER SCAN SHOWED GREATER THAN 750ML. THEREFORE NURSING REPLACING SCHWAB. SHOULD PT DC WITH [facility] REQUESTING PHYSICIAN DOCUMENT IN DC SUMMARY SCHWAB INDICATION. CM WILL F/U WITH TEAM TO DISCUSS. CM FOLLOWING FOR DC PLANNING.
[2021-05-03 20:09] VITALS: BP 151/88
--- NOTE | 2021-05-03 20:16 | NUR ---
Pt has been having loose yellow/orange stools x4; cdiff suspected; MD will be consulted in AM on need for c.diff r/o testing.; ID adjusted antibiotics. Pt worked with PT today. Pt has been more verbal today and ate all three meals. wound care saw pt and changed dressings on sacal wounds; dressing changed with each BM. Profo boots ordered and in place. Pt had very large emesis at 1840. No current concerns; continue to monitor
[2021-05-04 01:41] LABS: HEMATOCRIT 26.3 % (37.0-47.0); HEMOGLOBIN 8.3 gm/dL (12.0-15.0); MCHC 31.4 g/dL (28.0-37.0); MCV 85.9 fL (80.0-100.0); RBC 3.06 mil/uL (4.20-5.00); RDW 16.7 % (10.5-14.5); WBC 14.6 thou/uL (4.0-11.0)
[2021-05-04 01:58] LABS: CALCIUM 8.1 mg/dL (8.5-10.1); CREATININE 0.9 mg/dL (0.6-1.0); POTASSIUM 3.9 mmol/L (3.5-5.1)
[2021-05-04 03:40] VITALS: BP 149/83
--- NOTE | 2021-05-04 04:57 | NUR ---
PT SLOWLY PROGRESSING TOWARD GOALS. PT IS ALERT BUT DOES NOT FOLLOW COMMANDS OR ANSWER ORIENTATION QUESTIONS. SCHWAB IN PLACE WITH ADEQUATE OUTPUT. VSS THROUGHOUT THE SHIFT. WOUND CARE COMPLETED PER ORDERS, REPOSITIONED AT ROUTINE INTERVALS. LOOSE BM X2 NOTED THIS SHIFT WITH MUCOUS PRESENT. CONTINUES ON HEPARIN GTT. APTT HIGH AT 72.7, DOSE REDUCED BY 2u/kg/hr PER HEPARIN PROTOCOL. REDRAW SCHEDULED ACCORDINGLY. WILL CONTINUE TO OBSERVE FOR CHANGES
[2021-05-04 09:04] VITALS: BP 145/69
[2021-05-04 12:35] VITALS: BP 146/79
[2021-05-04 20:45] VITALS: BP 161/77
[2021-05-05 04:45] VITALS: BP 147/68
--- NOTE | 2021-05-05 06:18 | NUR ---
ASSUME CARE 190. PT/VITALS STABLE. UNABLE TO COMUNICATE NEEDS BUT GRIMMACES WITH TURNS. PAIN MEDICATION GIVEN TO HELP WITH MILD PAIN/DISCOMFORT. ALERT/SPONTANEOUSLY WAKES UP TO VERBAL STIMULI. ORIENTED TO PERSON ONLY. ST ON MONITOR. ASSESSMENT CHARTED. PROGRESSING MODERATELY TO POC. NO DISTRESS NOTED THROUGH THE NIGHT. LARGE URINE OUTPUTNOTED. URINE STILL BLOOD TINGED. PLAN IS POSSIBLE DISCHARGE BACK TO ASSISTED TODAY. WILL CONTINUE TO MONITOR AND FOLLOW WITH POC
[2021-05-05] MEDS ORDERED: FLUCONAZOLE 10100 MG PO (07:13)
[2021-05-05 07:36] VITALS: BP 154/98
[2021-05-05] MEDS ORDERED: ELIQUIS5 MG PO (07:41)
--- NOTE | 2021-05-05 08:37 | NUR ---
WOUND CARE F/U: THE SACRAL WOUND IS STABLE AT THIS TIME. NO ODOR. THE RIGHT ANKLE IS STABLE. NO S/S THAT WOUND INDICATE A NEED TO CHANGE THE POC. DISCUSSED WITH RN
[2021-05-05 11:44] VITALS: BP 158/106
--- NOTE | 2021-05-05 12:15 | NUR ---
DC orders for ltc faxed to kvng in admissions at [place]. Stretcher van setup for 2-3pm transort. Kvng and dtr Yessica notified. Both agreeable to pt's return to ltc at [place]. Chart copy and orders ready to be sent with the pt. Nursing to call report. Sai likely half-way and dtr has spoken with the attending.
--- NOTE | 2021-05-05 16:15 | NUR ---
PT DISCHARGED BACK TO FACILITY VIA TRASPORT STRECHER WITH ALL PERSONAL BELONGINGS SENT WITH PATIENT. VSS, PATIENT AT BASELINE. ALL IV REMOVED PRIOR TO DISCHARGE.
== END 2021-05-05 14:20 | DRG 698 ==
LOC: ER 17:31 → 2N 20:13 → EROBS 20:13 → 2N 05-01 21:35
PROVIDERS: Emergency Medicine; Nurse Practitioner Family; Pediatrics; Student in an Organized Health Care Education/Training Program; ADMIT Internal Medicine; ATTEND Internal Medicine
DX: T83.018A Breakdown (mechanical) of other urinary catheter, initial encounter (principal); B37.7 Candidal sepsis; I26.99 Other pulmonary embolism without acute cor pulmonale; G93.41 Metabolic encephalopathy; R65.20 Severe sepsis without septic shock; T83.86XA Thrombosis due to genitourinary prosthetic devices, implants and grafts, initial encounter; I69.351 Hemiplegia and hemiparesis following cerebral infarction affecting right dominant side; I69.354 Hemiplegia and hemiparesis following cerebral infarction affecting left non-dominant side; N17.9 Acute kidney failure, unspecified; E44.1 Mild protein-calorie malnutrition; B37.49 Other urogenital candidiasis; Z20.822 Contact with and (suspected) exposure to COVID-19; E11.9 Type 2 diabetes mellitus without complications; Y84.6 Urinary catheterization as the cause of abnormal reaction of the patient, or of later complication, without mention of misadventure at the time of the procedure; H53.462 Homonymous bilateral field defects, left side; R33.9 Retention of urine, unspecified; N13.9 Obstructive and reflux uropathy, unspecified; E11.65 Type 2 diabetes mellitus with hyperglycemia; N31.9 Neuromuscular dysfunction of bladder, unspecified; E11.51 Type 2 diabetes mellitus with diabetic peripheral angiopathy without gangrene; G40.909 Epilepsy, unspecified, not intractable, without status epilepticus; R13.10 Dysphagia, unspecified; F32.9 Major depressive disorder, single episode, unspecified; F41.9 Anxiety disorder, unspecified; K59.00 Constipation, unspecified; E78.5 Hyperlipidemia, unspecified; I10 Essential (primary) hypertension; I69.320 Aphasia following cerebral infarction; Z79.899 Other long term (current) drug therapy; Z79.82 Long term (current) use of aspirin; I69.391 Dysphagia following cerebral infarction; Z68.23 Body mass index [BMI] 23.0-23.9, adult; Y92.89 Other specified places as the place of occurrence of the external cause
CPT/HCPCS: 10081